=== PATIENT | female | born 1970 | race Caucasian/White ===

== ENCOUNTER 2018-04-28 14:24 | Inpatient (IN) | payer BC ==
[2018-04-28] MEDS ORDERED: SODIUM CHLORIDE 0.9% 1,000 ML IV STA (15:59)
[2018-04-28] MEDS: ONDANSETRON 4 MG/2 ML VIAL IVP STA (16:12)
[2018-04-28 16:15] LABS: Basophils % (A) 0 %; Eosinophils # (A) 0.1 k/uL (0-0.7); Eosinophils % (A) 1 %; HCT 47.9 % (34.0-46.0); HGB 16.2 gm/dL (11.4-16.0); Lymphocytes # (A) 1.2 k/uL (1.0-4.8); Lymphocytes % (A) 12 %; MCH 30.2 pg (25.0-35.0); MCHC 33.8 g/dL (31.0-37.0); MCV 89.3 fL (80.0-100.0); Mean Platelet Volume 6.8; Monocytes # (A) 0.6 k/uL (0-1.0); Monocytes % (A) 6 %; Neutrophils # (A) 7.9 k/uL (1.3-7.7); Neutrophils % (A) 80 %; Platelet Count 285 k/uL (150-450); RBC 5.36 m/uL (3.80-5.40); RDW 12.2 % (11.5-15.5); WBC 9.8 k/uL (3.8-10.6)
[2018-04-28 16:24] LABS: ALT 31 U/L (9-52); AST 25 U/L (14-36); Albumin 4.9 g/dL (3.5-5.0); Alkaline Phosphatase 119 U/L (38-126); Amylase 60 U/L (30-110); Anion Gap 12 mmol/L; Blood Urea Nitrogen 15 mg/dL (7-17); Calcium 10.3 mg/dL (8.4-10.2); Carbon Dioxide 25 mmol/L (22-30); Chloride 101 mmol/L (98-107); Glucose 120 mg/dL (74-99); Lipase 55 U/L (23-300); Sodium 138 mmol/L (137-145); Total Bilirubin 0.9 mg/dL (0.2-1.3); Total Protein 7.8 g/dL (6.3-8.2)
--- NOTE | 2018-04-28 16:26 | ED ---
Abdominal Pain HPI - General Source: patient, RN notes reviewed Mode of arrival: wheelchair Limitations: no limitations <Cooper Otto - Last Filed: 04/28/18 17:55> <Zoë Mccabe - Last Filed: 04/28/18 18:17> - General Chief Complaint: Abdominal Pain Stated Complaint: abdominal pain/vomiting Time Seen by Provider: 04/28/18 15:42 - History of Present Illness Initial Comments: This is a 48-year-old female presents emergency Department with chief complaint of abdominal pain. Patient states that she feels like she's been having gas bubbles intermittent abdominal pain. Patient had some nausea no vomiting no diarrhea. Denies any vaginal bleeding vaginal discharge or dysuria no hematuria. Patient states she does drink wine a regular basis concerned about possible pancreatitis or gastritis enteritis. 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 Patient's had no prior abdominal infections no history of diverticulitis pancreatitis. She's had no prior cholecystectomy or appendectomy. (Cooper Otto) - Related Data Home Medications Medication Instructions Recorded Confirmed No Known Home Medications 04/28/18 04/28/18 Allergies Allergy/AdvReac Type Severity Reaction Status Date / Time No Known Allergies Allergy Verified 04/28/18 15:31 Review of Systems ROS Other: All systems not noted in ROS Statement are negative. <Cooper Otto - Last Filed: 04/28/18 17:55> ROS Other: All systems not noted in ROS Statement are negative. <Zoë Mccabe - Last Filed: 04/28/18 18:17> ROS Statement: Those systems with pertinent positive or pertinent negative responses have been documented in the HPI. Past Medical History Additional Past Medical History / Comment(s): colon polyps History of Any Multi-Drug Resistant Organisms: None Reported Past Surgical History: No Surgical Hx Reported Past Psychological History: No Psychological Hx Reported Smoking Status: Current every day smoker Past Alcohol Use History: Daily Past Drug Use History: None Reported <Cooper Otto - Last Filed: 04/28/18 17:55> General Exam Limitations: no limitations General appearance: alert, in no apparent distress Head exam: Present: atraumatic, normocephalic, normal inspection Eye exam: Present: normal appearance, PERRL, EOMI. Absent: scleral icterus, conjunctival injection, periorbital swelling ENT exam: Present: normal exam, normal oropharynx, mucous membranes moist, TM's normal bilaterally Neck exam: Present: normal inspection, full ROM. Absent: tenderness, meningismus, lymphadenopathy Respiratory exam: Present: normal lung sounds bilaterally. Absent: respiratory distress, wheezes, rales, rhonchi, stridor Cardiovascular Exam: Present: regular rate, normal rhythm, normal heart sounds. Absent: systolic murmur, diastolic murmur, rubs, gallop, clicks GI/Abdominal exam: Present: soft, tenderness (Mild diffuse), normal bowel sounds. Absent: distended, guarding, rebound, rigid Back exam: Absent: CVA tenderness (R), CVA tenderness (L) Skin exam: Present: warm, dry, intact, normal color. Absent: rash <Cooper Otto - Last Filed: 04/28/18 17:55> Vital Signs 04/28/18 04/28/18 15:28 17:58 Temperature 97.5 F L 98.4 F Pulse Rate 75 67 Respiratory 18 19 Rate Blood Pressure 110/74 118/62 O2 Sat by Pulse 99 100 Oximetry Medical Decision Making - Lab Data Result diagrams: 04/28/18 15:53 04/28/18 15:53 <Cooper Otto - Last Filed: 04/28/18 17:55> - Lab Data Result diagrams: 04/28/18 15:53 04/28/18 15:53 <Zoë Mccabe - Last Filed: 04/28/18 18:17> - Medical Decision Making I saw and evaluated the patient after initial workup was performed by PA.. Patient with significant right lower quadrant abdominal pain, CT findings concerning for cecal mass versus appendicitis. Patient declining narcotic pain medication. Patient care was discussed with general surgery Dr. Block who accepts the patient to her service, requests IV antibiotics and nothing by mouth status. Orders were placed. (Zoë Mccabe) - Lab Data Lab Results 04/28/18 04/28/18 Range/Units 15:53 15:53 WBC 9.8 (3.8-10.6) k/uL RBC 5.36 (3.80-5.40) m/uL Hgb 16.2 H (11.4-16.0) gm/dL Hct 47.9 H (34.0-46.0) % MCV 89.3 (80.0-100.0) fL MCH 30.2 (25.0-35.0) pg MCHC 33.8 (31.0-37.0) g/dL RDW 12.2 (11.5-15.5) % Plt Count 285 (150-450) k/uL Neutrophils % 80 % Lymphocytes % 12 % Monocytes % 6 % Eosinophils % 1 % Basophils % 0 % Neutrophils # 7.9 H (1.3-7.7) k/uL Lymphocytes # 1.2 (1.0-4.8) k/uL Monocytes # 0.6 (0-1.0) k/uL Eosinophils # 0.1 (0-0.7) k/uL Basophils # 0.0 (0-0.2) k/uL Sodium 138 (137-145) mmol/L Potassium 4.0 (3.5-5.1) mmol/L Chloride 101 (98-107) mmol/L Carbon Dioxide 25 (22-30) mmol/L Anion Gap 12 mmol/L BUN 15 (7-17) mg/dL Creatinine 0.60 (0.52-1.04) mg/dL Est GFR (CKD-EPI)AfAm >90 (>60 ml/min/1.73 sqM) Est GFR (CKD-EPI)NonAf >90 (>60 ml/min/1.73 sqM) Glucose 120 H (74-99) mg/dL Calcium 10.3 H (8.4-10.2) mg/dL Total Bilirubin 0.9 (0.2-1.3) mg/dL AST 25 (14-36) U/L ALT 31 (9-52) U/L Alkaline Phosphatase 119 (38-126) U/L Total Protein 7.8 (6.3-8.2) g/dL Albumin 4.9 (3.5-5.0) g/dL Amylase 60 (30-110) U/L Lipase 55 (23-300) U/L Disposition <Cooper Otto M - Last Filed: 04/28/18 17:55> <Zoë Mccabe P - Last Filed: 04/28/18 18:17> Clinical Impression: Acute appendicitis Disposition: ADMITTED IP TO THIS [facility] Condition: Stable Referrals: None,Stated [Primary Care Provider] - 1-2 days
--- NOTE | 2018-04-28 17:05 | CT ---
EXAMINATION TYPE: CT abdomen pelvis w con DATE OF EXAM: 04/28/2018 COMPARISON: HISTORY: Abdominal pain with vomiting x1 week CT DLP: 420.8 mGycm Automated exposure control for dose reduction was used. TECHNIQUE: Helical acquisition of images from the lung bases through the pelvis have been completed. CONTRAST: Performed without Oral Contrast and with IV Contrast, patient injected with 100 mL of Isovue 300. FINDINGS: LUNG BASES: Calcified granuloma present in the right lower lobe.. AORTA: No significant abnormality is appreciated. LIVER/GB: Low dense focus measuring 12 mm is thought to enhance on delayed images within the left lob e and may represent hemangioma, axial image 10. PANCREAS: No significant abnormality is seen. SPLEEN: No significant abnormality is seen. ADRENALS: No significant abnormality is seen. KIDNEYS: No significant abnormality is seen. REPRODUCTIVE ORGANS: No significant abnormality is seen BOWEL: Within the right lower quadrant there is abnormal soft tissue present with some local inflamm atory change dependence is at the upper limit of normal for size on axial images but may be dilated c oronal image 34. There are some fluid-filled loops of small bowel. Some minimal diverticular change noted in the sigmoid colon FREE AIR: No Free Air visible. ASCITES: Small amount of free fluid in the pelvis. PELVIC ADENOPATHY: None visualized. RETROPERITONEAL ADENOPATHY: No Retroperitoneal Adenopathy visible. URINARY BLADDER: No significant abnormality is seen. OSSEOUS STRUCTURES: No significant abnormality is seen. IMPRESSION: FINDINGS COULD POSSIBLY REPRESENT APPENDICITIS, CORRELATE, FOLLOW-UP IS RECOMMENDED. Inflammatory tim nges are suspected within the cecum, difficult to exclude underlying soft tissue mass. Ileus suspecte d.
[2018-04-28] MEDS ORDERED: ACETAMINOPHEN IV (For NPO) 1,000 MG in EMPTY BAG 1 BAG IVPB ONE (17:25)
[2018-04-28] MEDS ORDERED: PIPERACILLIN-TAZOBACTAM 3.375 GM in DEXTROSE/WATER 1 50ML.BAG IVPB STA (17:34)
[2018-04-28] MEDS ORDERED: ONDANSETRON 4 MG/2 ML VIAL IVP PRN (17:55)
[2018-04-28] MEDS ORDERED: cefTRIAXone IN SWFI 1,000 MG/10 ML SYRINGE IVP STA (18:02)
[2018-04-28 18:28] LABS: Appearance,Urine Clear (Clear); Bilirubin,Urine Negative (Negative); Blood,Urine Negative (Negative); Color,Urine Yellow; Glucose,Urine (UA) Negative (Negative); Ketones,Urine 3+ (Negative); Leukocyte Esterase,Urine Negative (Negative); Nitrite,Urine Negative (Negative); Protein,Urine Trace (Negative); Urobilinogen,Urine <2.0 mg/dL (<2.0)
[2018-04-28] MEDS ORDERED: MORPHINE SULFATE 2 MG/ML SYRINGE IVP ONE (18:35)
[2018-04-28 18:37] LABS: Specific Gravity,Urine >1.050 (1.001-1.035)
[2018-04-28] MEDS: SODIUM CHLORIDE 0.9% 1,000 ML IV SCH (18:44)
--- NOTE | 2018-04-28 20:07 | P.GSHP ---
History of Present Illness H&P Date: 04/28/18 Chief Complaint: Abdominal pain The patient's a 48-year-old female who presented to the emergency room with abdominal pain. This is been going on as "gas bubbles "for the last 2 weeks. Got worse chest today. She's had some nausea and vomiting so came into the emergency department today. Denies fevers or chills. The pain will come and go like a wave. She's never had anything like this in the past. No one else at home is been ill. She's had normal bowel movements. 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 She gets colonoscopies regularly and typically has polyps. Her last colonoscopy was 3 years ago. She denies any blood in the stools or dark tarry stools. Her father's had colon cancer. - Review of Systems All systems: negative - Constitutional Constitutional: Denies weight loss - Gastrointestinal Gastrointestinal: Denies bloating, Denies change in bowel habits, Denies diarrhea, Denies melena Past Medical History Additional Past Medical History / Comment(s): colon polyps History of Any Multi-Drug Resistant Organisms: None Reported Past Surgical History: No Surgical Hx Reported Past Psychological History: No Psychological Hx Reported Smoking Status: Current every day smoker Past Alcohol Use History: Daily Past Drug Use History: None Reported Medications and Allergies Home Medications Medication Instructions Recorded Confirmed Type No Known Home Medications 04/28/18 04/28/18 History Allergies Allergy/AdvReac Type Severity Reaction Status Date / Time No Known Allergies Allergy Verified 04/28/18 15:31 Surgical - Exam Osteopathic Statement: *. No significant issues noted on an osteopathic structural exam other than those noted in the History and Physical/Consult. Vital Signs Temp Pulse Resp BP Pulse Ox 97.5 F L 75 18 110/74 99 04/28/18 15:28 04/28/18 15:28 04/28/18 15:28 04/28/18 15:28 04/28/18 15:28 - General well developed, well nourished, no distress - Eyes normal ocular movement - ENT normal mucosa - Neck trachea midline, no lymphadectomy - Respiratory normal expansion, normal respiratory effort, clear to auscultation - Cardiovascular Rhythm: regular Abnormal Heart Sounds: no systolic murmur - Abdomen Abdomen: soft, tender (Very minimal right lower quadrant), bowel sounds, masses (Fullness in the right lower quadrant), no guarding, no rigid, no rebound, no distended - Integumentary no rash, no abnormal pigmentation - Psychiatric oriented to time, oriented to person, oriented to place, speech is normal, memory intact Results - Labs 04/28/18 15:53 04/28/18 15:53 Abnormal Lab Results - Last 24 Hours (Table) 04/28/18 04/28/18 04/28/18 Range/Units 15:53 15:53 18:00 Hgb 16.2 H (11.4-16.0) gm/dL Hct 47.9 H (34.0-46.0) % Neutrophils # 7.9 H (1.3-7.7) k/uL Glucose 120 H (74-99) mg/dL Calcium 10.3 H (8.4-10.2) mg/dL Ur Specific [place] >1.050 H (1.001-1.035) Urine Protein Trace H (Negative) Urine Ketones 3+ H (Negative) Diabetes panel 04/28/18 Range/Units 15:53 Sodium 138 (137-145) mmol/L Potassium 4.0 (3.5-5.1) mmol/L Chloride 101 (98-107) mmol/L Carbon Dioxide 25 (22-30) mmol/L BUN 15 (7-17) mg/dL Creatinine 0.60 (0.52-1.04) mg/dL Glucose 120 H (74-99) mg/dL Calcium 10.3 H (8.4-10.2) mg/dL AST 25 (14-36) U/L ALT 31 (9-52) U/L Alkaline Phosphatase 119 (38-126) U/L Total Protein 7.8 (6.3-8.2) g/dL Albumin 4.9 (3.5-5.0) g/dL Calcium panel 04/28/18 Range/Units 15:53 Calcium 10.3 H (8.4-10.2) mg/dL Albumin 4.9 (3.5-5.0) g/dL Pituitary panel 04/28/18 Range/Units 15:53 Sodium 138 (137-145) mmol/L Potassium 4.0 (3.5-5.1) mmol/L Chloride 101 (98-107) mmol/L Carbon Dioxide 25 (22-30) mmol/L BUN 15 (7-17) mg/dL Creatinine 0.60 (0.52-1.04) mg/dL Glucose 120 H (74-99) mg/dL Calcium 10.3 H (8.4-10.2) mg/dL Adrenal panel 04/28/18 Range/Units 15:53 Sodium 138 (137-145) mmol/L Potassium 4.0 (3.5-5.1) mmol/L Chloride 101 (98-107) mmol/L Carbon Dioxide 25 (22-30) mmol/L BUN 15 (7-17) mg/dL Creatinine 0.60 (0.52-1.04) mg/dL Glucose 120 H (74-99) mg/dL Calcium 10.3 H (8.4-10.2) mg/dL Total Bilirubin 0.9 (0.2-1.3) mg/dL AST 25 (14-36) U/L ALT 31 (9-52) U/L Alkaline Phosphatase 119 (38-126) U/L Total Protein 7.8 (6.3-8.2) g/dL Albumin 4.9 (3.5-5.0) g/dL - Imaging CT scan - abdomen: report reviewed, image reviewed Assessment and Plan (1) Abdominal pain Current Visit: Yes Status: Acute Code(s): R10.9 - UNSPECIFIED ABDOMINAL PAIN SNOMED Code(s): 93207824 (2) Abnormal computed tomography of abdomen and pelvis Current Visit: Yes Status: Acute Code(s): R93.5 - ABN FINDINGS ON DX IMAGING OF ABD REGIONS, INC RETROPERITON SNOMED Code(s): 616380498 (3) Family history of colon cancer in father Current Visit: Yes Status: Acute Code(s): Z80.0 - FAMILY HISTORY OF MALIGNANT NEOPLASM OF DIGESTIVE ORGANS SNOMED Code(s): 399308976 (4) Personal history of colonic polyps Current Visit: Yes Status: Acute Code(s): Z86.010 - PERSONAL HISTORY OF COLONIC POLYPS SNOMED Code(s): 924121150 Plan: Her symptoms are not typical of acute appendicitis. We'll recheck lab in the morning. We'll monitor her for fever. If she has a stool we'll do Hemoccult. Also obtain a CEA. I would be concerned she could have some sort of tumor at the ileocecal valve is starting to cause partial obstruction. This was discussed with her. We'll do DVT and ulcer prophylaxis. Further recommendations to follow.
[2018-04-28] MEDS ORDERED: MORPHINE SULFATE 4 MG/ML SYRINGE IVP PRN (20:51)
[2018-04-28] MEDS ORDERED: KETOROLAC 30 MG/ML 1 ML VIAL IVP PRN (20:53)
[2018-04-28] MEDS ORDERED: METOCLOPRAMIDE 5 MG/ML 2 ML VIAL IVP PRN (20:53)
[2018-04-28] MEDS: MORPHINE SULFATE 2 MG/ML SYRINGE IVP PRN (22:53)
[2018-04-29] MEDS: MORPHINE SULFATE 2 MG/ML SYRINGE IVP PRN ×2 (02:40→06:39)
[2018-04-29] MEDS: SODIUM CHLORIDE 0.9% 1,000 ML IV SCH ×3 (09:35→23:46)
--- NOTE | 2018-04-29 11:27 | P.PN ---
Subjective Progress Note Date: 04/29/18 Principal diagnosis: Abdominal pain The patient was monitored overnight. She has not had any fevers or chills. She has some intermittent crampy abdominal pain. White count is normal. Computed tomography scan was reviewed with her and her . Concern is this is an obstructing colon tumor and not appendicitis. Her symptoms do not fit an appendicitis pattern. Objective - Vital Signs Vital signs: Vital Signs Temp 98.0 F 04/29/18 09:33 Pulse 66 04/29/18 09:33 Resp 16 04/29/18 09:33 BP 99/59 04/29/18 09:33 Pulse Ox 98 04/29/18 09:33 Intake & Output 04/28/18 04/29/18 04/29/18 18:59 06:59 18:59 Intake Total 240 Balance 240 Weight 63.503 kg 62.2 kg Intake: Oral 240 - Constitutional General appearance: Present: average body habitus, cooperative, no acute distress - Respiratory Respiratory: bilateral: CTA - Cardiovascular Rhythm: regular - Gastrointestinal Gastrointestinal Comment(s): Right lower quadrant fullness General gastrointestinal: Present: normal bowel sounds, soft, tenderness (No significant tenderness) - Labs CBC & Chem 7: 04/28/18 15:53 04/28/18 15:53 Labs: Abnormal Lab Results - Last 24 Hours (Table) 04/28/18 04/28/18 04/28/18 Range/Units 15:53 15:53 18:00 Hgb 16.2 H (11.4-16.0) gm/dL Hct 47.9 H (34.0-46.0) % Neutrophils # 7.9 H (1.3-7.7) k/uL Glucose 120 H (74-99) mg/dL Calcium 10.3 H (8.4-10.2) mg/dL Ur Specific [place] >1.050 H (1.001-1.035) Urine Protein Trace H (Negative) Urine Ketones 3+ H (Negative) Assessment and Plan (1) Abdominal pain Current Visit: Yes Status: Acute Code(s): R10.9 - UNSPECIFIED ABDOMINAL PAIN SNOMED Code(s): 79676736 (2) Abnormal computed tomography of abdomen and pelvis Current Visit: Yes Status: Acute Code(s): R93.5 - ABN FINDINGS ON DX IMAGING OF ABD REGIONS, INC RETROPERITON SNOMED Code(s): 241695038 (3) Family history of colon cancer in father Current Visit: Yes Status: Acute Code(s): Z80.0 - FAMILY HISTORY OF MALIGNANT NEOPLASM OF DIGESTIVE ORGANS SNOMED Code(s): 589687214 (4) Personal history of colonic polyps Current Visit: Yes Status: Acute Code(s): Z86.010 - PERSONAL HISTORY OF COLONIC POLYPS SNOMED Code(s): 157730945 Plan: Her picture is most consistent with a slowly obstructing colon tumor. Her pain is likely due to an obstruction at the ileocecal valve. We discussed the computed tomography scan findings. There is no evidence of any metastatic disease in the liver. No significant lymphadenopathy. At this point she would not tolerate a colonoscopy prep due to the obstructive symptoms. Recommended a laparoscopic right hemicolectomy possible open. The procedure risks and complications were discussed. We can likely do a primary anastomosis with a fairly low risk. Questions were encouraged and answered. She will need a postoperative colonoscopy. Optimally this would be done preoperative but she would not tolerate a prep.
[2018-04-29] MEDS ORDERED: MIDAZOLAM 2 MG/2 ML VIAL IV PRN (15:42)
[2018-04-29] MEDS ORDERED: ONDANSETRON 4 MG/2 ML VIAL IVP ONE (15:42)
[2018-04-29] MEDS ORDERED: DEXAMETHASONE SOD PHOSPHATE 10 MG/ML 1 ML VIAL IV ONE (15:42)
[2018-04-29] MEDS ORDERED: IV FLUID CONTINUATION 100 ML IV ONE (15:49)
[2018-04-29] MEDS: ONDANSETRON 4 MG/2 ML VIAL IVP STA (16:12)
[2018-04-29] MEDS: LACTATED RINGERS 1,000 ML IV SCH ×2 (16:12→17:02)
[2018-04-29] MEDS ORDERED: LIDOCAINE 1% 20 ML VIAL (10MG/ML) FOR IV START INTRADERMA ONE (16:13)
[2018-04-29] MEDS ORDERED: SUCCINYLCHOLINE CHLORIDE 100 MG/5 ML SYR IV ONE (17:03)
[2018-04-29] MEDS ORDERED: NEOSTIGMINE 1 MG/ML 10 ML VIAL ONE (17:03)
[2018-04-29] MEDS ORDERED: KETAMINE 10 MG/ML 20 ML VIAL ONE (17:03)
[2018-04-29] MEDS ORDERED: ROCURONIUM BROMIDE 10 MG/ML 10 ML VIAL IV ONE (17:03)
[2018-04-29] MEDS ORDERED: MIDAZOLAM 2 MG/2 ML VIAL ONE (17:03)
[2018-04-29] MEDS ORDERED: KETOROLAC 30 MG/ML 1 ML VIAL ONE (17:03)
[2018-04-29] MEDS ORDERED: LIDOCAINE 1% INJ 10MG/ML (20 ML MDV) ONE (17:03)
[2018-04-29] MEDS ORDERED: fentaNYL (PF) 50 MCG/ML 2 ML AMP ONE (17:03)
[2018-04-29] MEDS ORDERED: PROPOFOL 10 MG/ML 20 ML VIAL IV ONE (17:03)
[2018-04-29] MEDS ORDERED: HYDROmorphone (PF) 1 MG/ML ONE (17:03)
[2018-04-29] MEDS ORDERED: GLYCOPYRROLATE 0.2 MG/ML 2 ML VIAL ONE (17:03)
[2018-04-29] MEDS ORDERED: metroNIDAZOLE-NS PMX 500 MG in SALINE 1 100ML.BAG IVPB STA (17:11)
[2018-04-29] MEDS ORDERED: SODIUM CHLORIDE 0.9% 100 ML with ceFAZolin 2,000 MG IV ONE ×2 (17:15)
[2018-04-29] MEDS ORDERED: LIDOCAINE 1%-EPI 1:100,000 30 ML VIAL SQ ONE (17:25)
[2018-04-29] MEDS ORDERED: BUPIVACAINE (PF) 0.5% 30 ML VIAL SQ ONE (17:25)
[2018-04-29] MEDS: HYDROmorphone 1 MG/ML 1 ML SYRINGE IVP ONE ×4 (19:06→19:35)
[2018-04-29] MEDS ORDERED: NALOXONE 0.4 MG/ML 1 ML VIAL IV PRN (19:17)
--- NOTE | 2018-04-29 19:17 | P.OP ---
Date of Procedure: 04/29/18 Preoperative Diagnosis: Colon obstruction, cecal mass Postoperative Diagnosis: Colon obstruction, cecal mass Procedure(s) Performed: Laparoscopic-assisted right hemicolectomy Anesthesia: JAIRO Surgeon: Lara Block Estimated Blood Loss (ml): 75 Pathology: other (Right colon, peritoneal fluid) Condition: stable Disposition: PACU Indications for Procedure: Patient presented with abdominal pain and a CT showing abnormality in the cecum. There is a strong family history of colon cancer and the patient has had multiple colon polyps. Concern was for a cecal tumor with obstruction. 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 The tumor had several gelatinous appearing cystic lesions on the surface. Several 100 mL's of clear yellow fluid in the pelvis and right colic gutter. This was aspirated and sent for cytology. The liver, diaphragm, remainder of the large and small bowel was grossly normal where it was seen. She did have a incidental finding of a left inguinal hernia. Description of Procedure: The patient's taken the operative suite where she is prepped and draped in the usual sterile manner under general endotracheal anesthetic. An infraumbilical incision was made and a varies needle was placed into the abdominal cavity. Pneumoperitoneum was established with CO2 gas. Sites are chosen for accessory trochars needs are placed through small skin incisions. The patient is rotated towards the left. The terminal ileum is identified. The appendix and cecum are identified. The course of the ureter was seen and it was identified. The peritoneum was then incised along the terminal ileum and towards the peritoneal surface of the sidewall. There was a hard woody portion that appeared to be rectal extension. This was removed with harmonic scissors en-block with the cecum and right colon. The right paracolic gutter was then incised with harmonic scissors. The hepatic flexure and proximal transverse colon were freed up with harmonic scissors. The hepatic flexure and ascending colon were then rotated medially. Some additional filmy attachments posteriorly to the cecum were freed up with harmonic scissors. Once the colon was adequately mobilized, site was chosen on the anterior abdominal wall for removal of the tumor. A small incision was made. A splitting-type McBurney's incision was made. A small wound protector was placed. Terminal ileum was then brought up through the incision. Opening was made in the mesentery. A NORA stapler was placed and fired. The proximal small bowel was then tagged with 0 Vicryl dropped back into the abdominal cavity. The mesentery was then taken down with harmonic scissors. The ileocolic and middle colic vessels were clamped, cut, tied with 0 Vicryl sutures. Site was then chosen on the transverse colon for resection. A NORA stapler was placed and fired. A [id number] anastomosis was then carried out. The antimesenteric border of the small bowel was tacked to the transverse colon using 3-0 Vicryl. A small opening was made in each limb of the bowel and a NORA stapler was placed and fired. The enteric defect was closed in a 2 layered manner using 3-0 Vicryl. The anastomosis was reinforced with 3-0 Vicryl Lembert sutures. There was good anastomosis to finger palpation. Gloves were changed. The bowel was dropped back into the abdominal cavity. The posterior fascia and peritoneum were closed with 0 Vicryl. The muscle layers were allowed to fall back together. The anterior fascia was closed with 0 Vicryl. The pneumoperitoneum was reestablished in the abdominal and pelvic contents were examined. The bowel seemed to lay without any undue tension. The paracolic gutter was irrigated and aspirated. Everything appeared hemostatic. Ligaclips were used to gregoria the peritoneal edges were there was concern for direct tumor extension. The pneumoperitoneum was then released. The trochars were removed. The fascia at the umbilicus was closed with 0 Vicryl. The skin incisions were closed with nettie. She tolerated the procedure without difficulty and was taken recovery room in satisfactory condition. According to or personnel, ARE correct.
[2018-04-29] MEDS ORDERED: MIDAZOLAM 2 MG/2 ML VIAL IVP ONE (19:19)
[2018-04-29] MEDS ORDERED: SODIUM CHLORIDE 0.9% 1,000 ML IV ONE (19:38)
[2018-04-29] MEDS: fentaNYL (PF) 50 MCG/ML 2 ML AMP IV PRN ×2 (19:40→19:51)
[2018-04-29] MEDS: ENOXAPARIN 40 MG/0.4 ML SYRINGE SQ SCH (21:20)
[2018-04-29] MEDS: METOCLOPRAMIDE 5 MG/ML 2 ML VIAL IVP SCH (23:32)
[2018-04-29] MEDS: HYDROcodone/APAP 5-325MG 1 EACH TAB PO PRN (23:32)
[2018-04-29] MEDS: KETOROLAC 30 MG/ML 1 ML VIAL IVP SCH (23:33)
[2018-04-29] MEDS: D5-0.45% NACL WITH KCL 20MEQ/L 1,000 ML IV SCH (23:37)
[2018-04-30] MEDS: HYDROcodone/APAP 5-325MG 1 EACH TAB PO PRN ×4 (02:32→16:24)
[2018-04-30] MEDS: METOCLOPRAMIDE 5 MG/ML 2 ML VIAL IVP SCH ×3 (05:42→18:01)
[2018-04-30] MEDS: KETOROLAC 30 MG/ML 1 ML VIAL IVP SCH ×3 (05:43→18:00)
[2018-04-30] MEDS: D5-0.45% NACL WITH KCL 20MEQ/L 1,000 ML IV SCH ×2 (05:57→16:25)
[2018-04-30 08:16] LABS: Anion Gap 6 mmol/L; Blood Urea Nitrogen 8 mg/dL (7-17); Calcium 8.4 mg/dL (8.4-10.2); Carbon Dioxide 23 mmol/L (22-30); Chloride 105 mmol/L (98-107); Glucose 105 mg/dL (74-99); Sodium 134 mmol/L (137-145)
[2018-04-30] MEDS ORDERED: ceFAZolin 2,000 MG in DEXTROSE/WATER 1 50ML.BAG IVPB SCH (09:15)
[2018-04-30] MEDS: PANTOPRAZOLE 40 MG/10 ML VIAL IV SCH (09:15)
[2018-04-30] MEDS: ceFAZolin IN SWFI 2 GM/20 ML SYRINGE IVP SCH ×2 (09:23→17:05)
[2018-04-30] MEDS: metroNIDAZOLE-NS PMX 500 MG in SALINE 1 100ML.BAG IVPB SCH ×2 (09:30→17:04)
[2018-04-30] MEDS: SODIUM CHLORIDE 0.9% 1,000 ML IV SCH (09:59)
[2018-04-30 10:34] LABS: Basophils % (A) 0 %; Eosinophils % (A) 0 %; HCT 33.4 % (34.0-46.0); Lymphocytes # (A) 1.4 k/uL (1.0-4.8); Lymphocytes % (A) 16 %; MCH 30.5 pg (25.0-35.0); MCHC 33.4 g/dL (31.0-37.0); MCV 91.2 fL (80.0-100.0); Mean Platelet Volume 6.9; Monocytes # (A) 0.9 k/uL (0-1.0); Monocytes % (A) 10 %; Neutrophils # (A) 6.2 k/uL (1.3-7.7); Neutrophils % (A) 71 %; Platelet Count 184 k/uL (150-450); RBC 3.66 m/uL (3.80-5.40); RDW 12.3 % (11.5-15.5); WBC 8.7 k/uL (3.8-10.6)
[2018-04-30 10:40] LABS: HGB 11.1 gm/dL (11.4-16.0)
[2018-04-30] MEDS: LACTATED RINGERS 1,000 ML IV SCH (15:57)
[2018-04-30] MEDS: ENOXAPARIN 40 MG/0.4 ML SYRINGE SQ SCH (21:24)
[2018-05-01] MEDS ORDERED: KETOROLAC 30 MG/ML 1 ML VIAL ONE (00:20)
[2018-05-01] MEDS ORDERED: METOCLOPRAMIDE 5 MG/ML 2 ML VIAL ONE (00:20)
[2018-05-01] MEDS ORDERED: D5-0.45% NACL WITH KCL 20MEQ/L 1,000 ML BAG IV ONE (00:20)
[2018-05-01] MEDS ORDERED: HYDROcodone/APAP 5-325MG 1 EACH TAB ONE (00:20)
[2018-05-01] MEDS: KETOROLAC 30 MG/ML 1 ML VIAL IVP SCH ×4 (04:31→18:15)
[2018-05-01] MEDS: D5-0.45% NACL WITH KCL 20MEQ/L 1,000 ML IV SCH ×2 (04:31→12:32)
[2018-05-01] MEDS: SODIUM CHLORIDE 0.9% 1,000 ML IV SCH ×3 (04:31→18:34)
[2018-05-01] MEDS: METOCLOPRAMIDE 5 MG/ML 2 ML VIAL IVP SCH ×4 (04:31→18:39)
[2018-05-01] MEDS: PANTOPRAZOLE 40 MG/10 ML VIAL IV SCH (09:06)
[2018-05-01 15:32] VITALS: BP 115/65; PULSE 77; RESP 16; TEMP 98.1
[2018-05-01] MEDS: LACTATED RINGERS 1,000 ML IV SCH (18:38)
--- NOTE | 2018-05-01 19:09 | P.PN ---
Subjective Progress Note Date: 04/30/18 Principal diagnosis: Obstructing colon tumor Patient is postop day 1 from a laparoscopic assisted right hemicolectomy. She' s having incisional pain and pain in the right flank. No nausea or vomiting. She's been reluctant to take pain medications and that was encouraged. Objective - Vital Signs Vital signs: Vital Signs Temp 98.1 F 05/01/18 15:00 Pulse 77 05/01/18 15:00 Resp 16 05/01/18 15:00 BP 115/65 05/01/18 15:00 Pulse Ox 98 05/01/18 15:00 Intake & Output 04/30/18 05/01/18 05/01/18 18:59 06:59 18:59 Intake Total 700 1600 Output Total 2550 0 Balance -1850 1600 Weight 62.2 kg 62.2 kg Intake: Intake, IV Titration 700 1600 Amount D5-0.45% NaCl with KCl 700 1600 20Meq/l 1,000 ml @ 100 mls/hr IV .Q10H BRYN Rx#: [id number] Output: Urine 2550 Uretheral (Mg) 350 Stool 0 Other: Voiding Method Toilet Toilet # Voids 1 3 # Bowel Movements 1 - Constitutional General appearance: Present: cooperative, no acute distress - Respiratory Respiratory: bilateral: CTA - Cardiovascular Rhythm: regular - Gastrointestinal General gastrointestinal: Present: normal bowel sounds, soft Localized gastrointestinal: surgical scar: diffuse (Dressings are intact clean and dry ) - Labs CBC & Chem 7: 04/30/18 09:53 04/30/18 07:19 Assessment and Plan (1) Colon cancer Current Visit: Yes Status: Acute Code(s): C18.9 - MALIGNANT NEOPLASM OF COLON, UNSPECIFIED SNOMED Code(s): 815013010 Plan: The patient is doing fairly well. A encouraged her to take some pain medication for the first couple of days is that we'll help her with her pulmonary toilet and overall activity levels. She is agreeable. We'll monitor her oral intake and for resumption of bowel function. Progressing slowly
--- NOTE | 2018-05-01 19:10 | P.PN ---
Subjective Progress Note Date: 05/01/18 Principal diagnosis: Obstructing colon tumor The patient is feeling much better today. She is anxious to go home. She denies any pain. No nausea or vomiting. She's been stooling several times through the day. Feels better than preoperatively. Objective - Vital Signs Vital signs: Vital Signs Temp 98.1 F 05/01/18 15:00 Pulse 77 05/01/18 15:00 Resp 16 05/01/18 15:00 BP 115/65 05/01/18 15:00 Pulse Ox 98 05/01/18 15:00 Intake & Output 05/01/18 05/01/18 05/02/18 06:59 18:59 06:59 Intake Total 1600 Output Total 0 Balance 1600 Weight 62.2 kg Intake: Intake, IV Titration 1600 Amount D5-0.45% NaCl with KCl 1600 20Meq/l 1,000 ml @ 100 mls/hr IV .Q10H BRYN Rx#: [id number] Output: Stool 0 Other: Voiding Method Toilet # Voids 1 3 # Bowel Movements 1 - Constitutional General appearance: Present: cooperative, no acute distress - Respiratory Respiratory: bilateral: CTA - Gastrointestinal General gastrointestinal: Present: normal bowel sounds, soft Localized gastrointestinal: surgical scar: diffuse (Incisions are intact clean and dry ) - Labs CBC & Chem 7: 04/30/18 09:53 04/30/18 07:19 Assessment and Plan (1) Colon cancer Current Visit: Yes Status: Acute Code(s): C18.9 - MALIGNANT NEOPLASM OF COLON, UNSPECIFIED SNOMED Code(s): 204094392 Plan: Patient surgically stable for discharge. We'll and over postoperative restrictions. I'll see her in the office next week. She is to call if she has any questions or concerns.
--- NOTE | 2018-05-01 19:12 | P.DS ---
Providers Date of admission: 04/28/18 18:15 Expected date of discharge: 05/01/18 Attending physician: Lara Block Primary care physician: Stated None - Discharge Diagnosis(es) (1) Colon cancer Current Visit: Yes Status: Acute Hospital Course: The patient presented to the emergency room with a two-week history of abdominal pain along with some nausea and vomiting. She is worked up and had a CT done showing an inflammatory change in the right lower quadrant. She was admitted for appendicitis. She was monitored overnight and showed no sign of fever. No evidence of leukocytosis. In questioning her there was a very strong family history of colon cancer and the patient was supposed to have colonoscopies performed very regularly. Her last would've been 3 years previously. Reviewing her computed tomography scan this appeared to be more like a colon tumor causing obstruction at the ileocecal valve. She was subsequently taken to the OR where she underwent a laparoscopic-assisted right hemicolectomy. There appeared to be a large tumor with invasion through the wall of the cecum and onto the right pelvic sidewall. She was given prophylactic antibiotics, DVT and ulcer prophylaxis. She quickly progressed. By postoperative day 2 she was tolerating a diet and having good bowel movements minimal pain and was felt to be stable for discharge Pertinent Studies: Computed tomography scan, lab Procedures: Laparoscopic-assisted right hemicolectomy Patient Condition at Discharge: Good Plan - Discharge Summary Discharge Rx Participant: No New Discharge Prescriptions: New HYDROcodone/APAP 5-325MG [[facility] 5-325] 1 - 2 tab PO Q4H PRN #15 tab PRN Reason: Pain No Action Biotin 5 mg PO DAILY Allergy Med (Unknown Otc) 1 tab PO DAILY PRN PRN Reason: Allergy Symptoms Discharge Medication List Allergy Med (Unknown Otc) 1 tab PO DAILY PRN 04/29/18 [History] Biotin 5 mg PO DAILY 04/29/18 [History] HYDROcodone/APAP 5-325MG [[facility] 5-325] 1 - 2 tab PO Q4H PRN #15 tab 05/01/18 [Rx ] Follow up Appointment(s)/Referral(s): Lara Block DO [Doctor of Osteopathic Medicine] - 05/09/18 (office closed, please call and make appointment) Patient Instructions/Handouts: Low Fiber Diet (DC), Colectomy (DC) Activity/Diet/Wound Care/Special Instructions: May remove the dressing and shower tomorrow. No tub bath or swimming for 1 week. No lifting > 10 pounds. Horace diet for 2 weeks. No driving for 1 week. Call if fever, chills, nausea or vomiting, abdominal pain, rectal bleeding Discharge Disposition: HOME SELF-CARE
== END 2018-05-01 19:19 | disposition home or self-care (01) | DRG 331 ==
LOC: EC 14:24 → 6PED 18:15 → 3SUR 04-29 18:03
PROVIDERS: ADMIT Surgery; ATTEND Surgery
PROC: 0DTF0ZZ Resection of Right Large Intestine, Open Approach (ICD-10-PCS; principal; 2018-04-29 09:35)
DX: C18.0 Malignant neoplasm of cecum (principal); F17.200 Nicotine dependence, unspecified, uncomplicated; Z80.0 Family history of malignant neoplasm of digestive organs; K40.90 Unilateral inguinal hernia, without obstruction or gangrene, not specified as recurrent
CPT/HCPCS: 36415; 74177; 80048; 80053; 81003; 81025; 82150; 82378; 83690; 85025; 86850; 86900; 86901; 88108; 88305; 88309; 88341; 88342; 94760; 96365; 96366; 96375; 99285

== ENCOUNTER → 2018-05-18 | Outpatient (CLI) | payer BC ==
--- NOTE | 2018-05-19 11:26 | PE ---
EXAMINATION TYPE: PET CT fusion skull to thigh DATE OF EXAM: 05/18/2018 COMPARISON: CT abdomen pelvis 04/28/2018 Prior PET/CT: None HISTORY: Colon cancer TECHNIQUE: Following the intravenous administration of 11.008 mCi of F-18 FDG, whole body images are performed from the skull base to the midthigh. Images are reviewed on the computer in the coronal, axial, and sagittal planes. Reconstructed rotating images are created on independent workstation and reviewed on the computer. A localization and attenuation correction CT is performed in conjunction with the PET scan. DLP: 263.03 mGycm SCAN: Initial Scan Blood glucose: 91 mg/dL Average Mediastinum SUV: 1.74 Average Liver SUV: 2.68 FINDINGS: NECK: No abnormal uptake THORAX: No abnormal uptake ABDOMEN: There is some focal radiotracer accumulation in the region of the proximal ascending colon. This appears to be at the level of the anastomosis and within fecal debris. This could be postsurgica l change. The patient's cancer could be at this location as well could correlate with the recent hist ory. PELVIS: No abnormal uptake OSSEOUS STRUCTURES: No suspicious uptake LOCALIZATION CT: The ascending thoracic aorta at the level of main pulmonary artery is 2.9 cm patent main pulmonary artery the bifurcation is 2.6 cm. Is likely a small splenule posterior to the right ki dney. No suspicious uptake on PET scan is evident within this region postsurgical changes are in the right lower quadrant. COMPARISON: Postsurgical changes appear to have occurred over the interval the right lower quadrant a nd cecum. IMPRESSION: 1. Uptake in the right lower quadrant on PET scan likely related to recent surgery. 2. No suspicious changes for metastatic disease on PET scan.
== END ==
LOC: RADPETMAIN 11:56
PROVIDERS: ATTEND Internal Medicine Hematology & Oncology
DX: C18.9 Malignant neoplasm of colon, unspecified (principal)
CPT/HCPCS: 78815; A9552

== ENCOUNTER → 2018-05-24 | Outpatient (CLI) | payer BC ==
--- NOTE | 2018-05-24 11:46 | US ---
EXAMINATION TYPE: US venous doppler duplex LE DATE OF EXAM: 05/24/2018 11:29 AM COMPARISON: NONE CLINICAL HISTORY: R22.42,R22.41 SWELLING LT AND RT LOWER LIMB. SIDE PERFORMED: Bilateral TECHNIQUE: The lower extremity deep venous system is examined utilizing real time linear array sonog owen with graded compression, doppler sonography and color-flow sonography. VESSELS IMAGED: External Iliac Vein (EIV) Common Femoral Vein Deep Femoral Vein Greater Saphenous Vein * Femoral Vein Popliteal Vein Small Saphenous Vein * Proximal Calf Veins (* superficial vessels) Grayscale, color doppler, spectral doppler imaging performed of the deep veins of the lower extremiti es. There is normal flow, compressibility, vascular waveforms. Right Leg: Negative for DVT Left Leg: Negative for DVT IMPRESSION: No sonographic evidence of deep venous thrombosis within either lower extremity.
== END | disposition home or self-care (01) ==
LOC: RADUSWWP 10:54
PROVIDERS: ATTEND Internal Medicine Hematology & Oncology
DX: R22.41 Localized swelling, mass and lump, right lower limb (principal); R22.42 Localized swelling, mass and lump, left lower limb
CPT/HCPCS: 93970

== ENCOUNTER 2019-02-13 12:36 | Day surgery (SDC) | payer BC ==
[2019-02-13 13:14] VITALS: BP 108/74; PULSE 108; RESP 14; TEMP 98.5
--- NOTE | 2019-02-13 14:42 | US ---
Discontinued paracentesis HISTORY: Ascites, colon carcinoma No recent exams available for correlation. Ultrasound performed in all 4 quadrants. Minimal ascites is identified. There is a Solid cystic mass present in the midline is multilocular. IMPRESSION: No significant ascites is evident to perform paracentesis at this time. There is an abdom inal mass present.
== END 2019-02-13 13:30 | disposition home or self-care (01) ==
LOC: RADPROMAIN 12:36
PROVIDERS: ATTEND Internal Medicine Hematology & Oncology
DX: R18.8 Other ascites (principal); C18.9 Malignant neoplasm of colon, unspecified; Z53.8 Procedure and treatment not carried out for other reasons
CPT/HCPCS: 76705

== ENCOUNTER → 2019-02-27 | Outpatient (CLI) | payer BC ==
--- NOTE | 2019-02-27 15:05 | XR ---
EXAMINATION TYPE: XR abdomen complete w decub DATE OF EXAM: 02/27/2019 COMPARISON: NONE HISTORY: Nausea and vomiting TECHNIQUE: Supine, upright, and left side down lateral decubitus views of the abdomen are obtained. FINDINGS: Mediport catheter seen there subsegmental changes at the left lung base. Bowel gas pattern nonspecific. Postsurgical changes are noted. Calcifications the pelvis appear vascular. Retained feca l debris in the colon. IMPRESSION: 1. Nonspecific abdomen. 2. Left lower lobe atelectasis or early infiltrate.
== END | disposition home or self-care (01) ==
LOC: RADXRMAIN 14:35
PROVIDERS: ATTEND Internal Medicine Hematology & Oncology
DX: E86.0 Dehydration (principal); R11.2 Nausea with vomiting, unspecified; C18.1 Malignant neoplasm of appendix; C18.2 Malignant neoplasm of ascending colon
CPT/HCPCS: 74021

== ENCOUNTER → 2019-03-01 | Outpatient (CLI) | payer BC ==
--- NOTE | 2019-03-03 12:12 | PE ---
Nuclear medicine PET/CT HISTORY: Colon carcinoma, subsequent Patient received 10.5 mCi F-18 FDG intravenously in delayed scanning was performed from the skull bas e to the mid thighs. Localization and attenuation correction CT scan was performed. Correlation to prior nuclear medicine PET/CT dated 05/18/2018 Neck and chest: There is no suspicious hypermetabolic uptake present. No evident cervical, mediastina l, axillary, or hilar adenopathy. There is a port in the right pectoral region coursing via a right i nternal jugular vein approach into the cavoatrial junction level. No pleural or pericardial effusion. There is calcified nodule in the right lower lobe. Elevation of left hemidiaphragm is again seen. ABDOMEN: Interval development of large amount of ascites. Extensive omental caking is suspected, mild hypermetabolic uptake is associated along the anterior abdominal masses SUV 2.6. Possible adnexal ma ss showing low attenuation on the left. Postoperative changes are noted to the colon. Osseous structures within normal limits. IMPRESSION: Interval development of a large amount of ascites, abdominal masses are suspected consist ent with peritoneal disease, there is mild hypermetabolic uptake associated with it is believed to be omental caking.
== END ==
LOC: RADPETMAIN 11:52
PROVIDERS: ATTEND Internal Medicine Hematology & Oncology
DX: C18.2 Malignant neoplasm of ascending colon (principal); R18.8 Other ascites
CPT/HCPCS: 78815; A9552

== ENCOUNTER 2019-03-12 10:40 | Inpatient (IN) | payer BC ==
[2019-03-12] MEDS ORDERED: SODIUM CHLORIDE 0.9% 1,000 ML IV STA ×3 (11:15→12:52)
--- NOTE | 2019-03-12 11:23 | ED ---
General Adult HPI - General Chief complaint: Recheck/Abnormal Lab/Rx Stated complaint: Low BP Time Seen by Provider: 03/12/19 11:03 Source: patient, family, RN notes reviewed Mode of arrival: wheelchair Limitations: no limitations - History of Present Illness Initial comments: Patient is a pleasant 48-year-old female presenting to the emergency department with lightheadedness and high heart rate. Patient was sent over from Dr. Cantor's office. He was also stressed to the patient that she may need TPN. Patient states for the last 48 hours she has been vomiting and decreased oral intake. Patient has not had that much nausea and feels more like it is when she bends over she just vomits. Patient does have abdominal distention. Patient does have history of colon cancer with metastasis. Patient is status post surgery and currently on her second round of chemotherapy. The first round of chemotherapy did not help. Patient feels generally weak and fatigued and lightheaded. Patient reportedly also had a low blood pressure at the office. - Related Data Home Medications Medication Instructions Recorded Confirmed Famotidine [Pepcid] 20 mg PO HS 08/05/18 03/12/19 Ferrous Sulfate [Iron] 325 mg PO DAILY 08/05/18 03/12/19 Ondansetron [Zofran] 8 mg PO Q8HR PRN 08/05/18 03/12/19 Prochlorperazine [Compazine] 10 mg PO Q6H PRN 08/05/18 03/12/19 Gabapentin [Neurontin] 300 mg PO BID@0800,1200 09/16/18 03/12/19 LORazepam [Ativan] 0.5 mg PO TID PRN 12/09/18 03/12/19 traMADol HCL [Ultram] 50 mg PO Q6HR PRN 12/09/18 03/12/19 Amitriptyline HCl [Elavil] 25 mg PO HS 01/20/19 03/12/19 HYDROcodone/APAP 5-325MG [[facility] 1 tab PO Q8H PRN 01/20/19 03/12/19 5-325] Doxycycline [Vibramycin] 100 mg PO Q12H 02/04/19 03/12/19 Gabapentin [Neurontin] 600 mg PO HS 02/04/19 03/12/19 Rivaroxaban [Xarelto] 20 mg PO DAILY 02/04/19 03/12/19 Allergies Allergy/AdvReac Type Severity Reaction Status Date / Time No Known Allergies Allergy Verified 03/12/19 11:17 Review of Systems ROS Statement: Those systems with pertinent positive or pertinent negative responses have been documented in the HPI. ROS Other: All systems not noted in ROS Statement are negative. Constitutional: Denies: fever, chills Eyes: Denies: eye pain ENT: Denies: ear pain Respiratory: Denies: dyspnea Cardiovascular: Denies: chest pain, palpitations Endocrine: Reports: fatigue Gastrointestinal: Reports: vomiting, other (Distention). 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, colon polyps, roseacea History of Any Multi-Drug Resistant Organisms: None Reported Past Surgical History: No Surgical Hx Reported Additional Past Surgical History / Comment(s): right colectomy Past Anesthesia/Blood Transfusion Reactions: Postoperative Nausea & Vomiting (PONV) Past Psychological History: No Psychological Hx Reported Smoking Status: Former smoker Past Alcohol Use History: Daily Past Drug Use History: None Reported - Past Family History Father Family Medical History: Congestive Heart Failure (CHF), CVA/TIA, Diabetes Mellitus, Deep Vein Thrombosis (DVT), Myocardial Infarction ([place]) Additional Family Medical History / Comment(s): colon cancer, bladder ca, skin ca, prostate ca, BLOOD CLOT IN ARM Mother Additional Family Medical History / Comment(s): tumor on spine, non hodgkins lymphoma, leukemia General Exam Limitations: no limitations General appearance: alert, cachectic Head exam: Present: normocephalic Eye exam: Present: normal appearance, PERRL ENT exam: Present: mucous membranes dry Neck exam: Present: normal inspection Respiratory exam: Present: normal lung sounds bilaterally Cardiovascular Exam: Present: tachycardia GI/Abdominal exam: Present: distended. Absent: tenderness Extremities exam: Present: normal inspection. Absent: pedal edema, calf tenderness Neurological exam: Present: alert Psychiatric exam: Present: normal affect, normal mood Skin exam: Present: warm, dry Course Vital Signs 03/12/19 03/12/19 10:45 11:24 Temperature 97.9 F Pulse Rate 134 H 123 H Respiratory 20 18 Rate Blood Pressure 87/61 115/86 O2 Sat by Pulse 97 98 Oximetry - Reevaluation(s) Reevaluation #1: 03/12/19 12:53 Urinalysis is showing potential for infection. Patient does meet sepsis criteria with some concern for urinary tract infection. Blood culture and lactic acid and urine culture and IV antibiotics have been ordered. Patient is not hypotensive at this time. EKG Findings - EKG Comments: EKG Findings:: Sinus tachycardia 1:15. SD 136. QRS 90. QT 3:30. QTC 467. Normal axis. Normal QRS. No acute ST change. Medical Decision Making - Medical Decision Making Patient was reevaluated and updated. Case was discussed in detail with Dr. Maldonado, covering for Dr. Heaton, who did come down and evaluate patient and will admit. Consult will place with Dr. Cantor. - Lab Data Result diagrams: 03/12/19 11:14 03/12/19 11:14 Lab Results 03/12/19 03/12/19 03/12/19 Range/Units 11:14 11:14 11:14 WBC 13.6 H (3.8-10.6) k/uL RBC 4.20 (3.80-5.40) m/uL Hgb 9.4 L (11.4-16.0) gm/dL Hct 32.5 L (34.0-46.0) % MCV 77.5 L (80.0-100.0) fL MCH 22.3 L (25.0-35.0) pg MCHC 28.8 L (31.0-37.0) g/dL RDW 18.9 H (11.5-15.5) % Plt Count 627 H (150-450) k/uL Neutrophils % 79 % Lymphocytes % 8 % Monocytes % 9 % Eosinophils % 0 % Basophils % 0 % Neutrophils # 10.7 H (1.3-7.7) k/uL Lymphocytes # 1.1 (1.0-4.8) k/uL Monocytes # 1.2 H (0-1.0) k/uL Eosinophils # 0.1 (0-0.7) k/uL Basophils # 0.0 (0-0.2) k/uL Hypochromasia Marked Anisocytosis Slight Microcytosis Slight PT (9.0-12.0) sec INR (<1.2) APTT (22.0-30.0) sec Sodium 133 L (137-145) mmol/L Potassium 4.3 (3.5-5.1) mmol/L Chloride 93 L (98-107) mmol/L Carbon Dioxide 27 (22-30) mmol/L Anion Gap 13 mmol/L BUN 19 H (7-17) mg/dL Creatinine 0.92 (0.52-1.04) mg/dL Est GFR (CKD-EPI)AfAm 85 (>60 ml/min/1.73 sqM) Est GFR (CKD-EPI)NonAf 74 (>60 ml/min/1.73 sqM) Glucose 181 H (74-99) mg/dL Plasma Lactic Acid Johnny 3.3 H* (0.7-2.0) mmol/L Calcium 9.2 (8.4-10.2) mg/dL Phosphorus 4.7 H (2.5-4.5) mg/dL Magnesium 1.9 (1.6-2.3) mg/dL Total Bilirubin 0.5 (0.2-1.3) mg/dL AST 28 (14-36) U/L ALT 27 (9-52) U/L Alkaline Phosphatase 318 H (38-126) U/L Total Protein 6.2 L (6.3-8.2) g/dL Albumin 3.1 L (3.5-5.0) g/dL TSH 2.250 (0.465-4.680) mIU/L Urine Color Urine Appearance (Clear) Urine pH (5.0-8.0) Ur Specific [place] (1.001-1.035) Urine Protein (Negative) Urine Glucose (UA) (Negative) Urine Ketones (Negative) Urine Blood (Negative) Urine Nitrite (Negative) Urine Bilirubin (Negative) Urine Urobilinogen (<2.0) mg/dL Ur Leukocyte Esterase (Negative) Urine RBC (0-5) /hpf Urine WBC (0-5) /hpf Ur Squamous Epith Cells (0-4) /hpf Urine Bacteria (None) /hpf Hyaline Casts (0-2) /lpf Urine Mucus (None) /hpf 03/12/19 03/12/19 Range/Units 11:14 12:13 WBC (3.8-10.6) k/uL RBC (3.80-5.40) m/uL Hgb (11.4-16.0) gm/dL Hct (34.0-46.0) % MCV (80.0-100.0) fL MCH (25.0-35.0) pg MCHC (31.0-37.0) g/dL RDW (11.5-15.5) % Plt Count (150-450) k/uL Neutrophils % % Lymphocytes % % Monocytes % % Eosinophils % % Basophils % % Neutrophils # (1.3-7.7) k/uL Lymphocytes # (1.0-4.8) k/uL Monocytes # (0-1.0) k/uL Eosinophils # (0-0.7) k/uL Basophils # (0-0.2) k/uL Hypochromasia Anisocytosis Microcytosis PT 15.8 H (9.0-12.0) sec INR 1.6 H (<1.2) APTT 33.0 H (22.0-30.0) sec Sodium (137-145) mmol/L Potassium (3.5-5.1) mmol/L Chloride (98-107) mmol/L Carbon Dioxide (22-30) mmol/L Anion Gap mmol/L BUN (7-17) mg/dL Creatinine (0.52-1.04) mg/dL Est GFR (CKD-EPI)AfAm (>60 ml/min/1.73 sqM) Est GFR (CKD-EPI)NonAf (>60 ml/min/1.73 sqM) Glucose (74-99) mg/dL Plasma Lactic Acid Johnny (0.7-2.0) mmol/L Calcium (8.4-10.2) mg/dL Phosphorus (2.5-4.5) mg/dL Magnesium (1.6-2.3) mg/dL Total Bilirubin (0.2-1.3) mg/dL AST (14-36) U/L ALT (9-52) U/L Alkaline Phosphatase (38-126) U/L Total Protein (6.3-8.2) g/dL Albumin (3.5-5.0) g/dL TSH (0.465-4.680) mIU/L Urine Color Dark Brown Urine Appearance Turbid H (Clear) Urine pH 6.0 (5.0-8.0) Ur Specific [place] 1.038 H (1.001-1.035) Urine Protein 2+ H (Negative) Urine Glucose (UA) Trace H (Negative) Urine Ketones Negative (Negative) Urine Blood Trace H (Negative) Urine Nitrite Negative (Negative) Urine Bilirubin 1+ H (Negative) Urine Urobilinogen 2.0 (<2.0) mg/dL Ur Leukocyte Esterase Large H (Negative) Urine RBC 26 H (0-5) /hpf Urine WBC 81 H (0-5) /hpf Ur Squamous Epith Cells 61 H (0-4) /hpf Urine Bacteria Rare H (None) /hpf Hyaline Casts 32 H (0-2) /lpf Urine Mucus Many H (None) /hpf - Radiology Data Radiology results: image reviewed (Chest x-ray shows no acute process) Critical Care Time Critical Care Time: Yes Total Critical Care Time: 32 Disposition Clinical Impression: Dehydration, UTI (urinary tract infection), Sepsis, Colon cancer Disposition: ADMITTED IP TO THIS HOSP Condition: Serious Is patient prescribed a controlled substance at d/c from ED?: No Referrals: Yael Goldberg MD [Primary Care Provider] - 1-2 days Decision Time: 12:54
[2019-03-12 11:28] LABS: Anisocytosis Slight; Basophils % (A) 0 %; Eosinophils # (A) 0.1 k/uL (0-0.7); Eosinophils % (A) 0 %; HCT 32.5 % (34.0-46.0); HGB 9.4 gm/dL (11.4-16.0); Hypochromasia Marked; Lymphocytes # (A) 1.1 k/uL (1.0-4.8); Lymphocytes % (A) 8 %; MCH 22.3 pg (25.0-35.0); MCHC 28.8 g/dL (31.0-37.0); MCV 77.5 fL (80.0-100.0); Mean Platelet Volume 6.8; Microcytosis Slight; Monocytes # (A) 1.2 k/uL (0-1.0); Monocytes % (A) 9 %; Neutrophils # (A) 10.7 k/uL (1.3-7.7); Neutrophils % (A) 79 %; Platelet Count 627 k/uL (150-450); RDW 18.9 % (11.5-15.5); WBC 13.6 k/uL (3.8-10.6)
--- NOTE | 2019-03-12 11:38 | XR ---
EXAMINATION TYPE: XR chest 2V DATE OF EXAM: 03/12/2019 COMPARISON: None INDICATION: Weakness low blood pressure colon cancer TECHNIQUE: Frontal and lateral views of the chest are obtained. FINDINGS: The heart size is normal. The pulmonary vasculature is normal. Minimal platelike atelectasis along the left diaphragm.. Port is present on the right with the tip i n superior vena cava region. IMPRESSION: 1. Minimal left basilar plate atelectasis.
[2019-03-12 11:43] LABS: Albumin 3.1 g/dL (3.5-5.0); Calcium 9.2 mg/dL (8.4-10.2); Magnesium 1.9 mg/dL (1.6-2.3); Phosphorus 4.7 mg/dL (2.5-4.5); Potassium 4.3 mmol/L (3.5-5.1); Total Bilirubin 0.5 mg/dL (0.2-1.3); Total Protein 6.2 g/dL (6.3-8.2)
[2019-03-12 11:50] LABS: INR 1.6 (<1.2); Prothrombin Time 15.8 sec (9.0-12.0)
[2019-03-12 12:44] LABS: Appearance,Urine Turbid (Clear); Bacteria,Urine Rare /hpf; Bilirubin,Urine 1+ (Negative); Blood,Urine Trace (Negative); Color,Urine Dark Brown; Glucose,Urine (UA) Trace (Negative); Hyaline Casts,Urine 32 /lpf (0-2); Ketones,Urine Negative (Negative); Leukocyte Esterase,Urine Large (Negative); Mucus,Urine Many /hpf; Nitrite,Urine Negative (Negative); Protein,Urine 2+ (Negative); RBC,Urine 26 /hpf (0-5); Specific Gravity,Urine 1.038 (1.001-1.035); Squamous Epithelial Cell,Urine 61 /hpf (0-4); WBC,Urine 81 /hpf (0-5)
[2019-03-12] MEDS ORDERED: cefTRIAXone IN SWFI 1,000 MG/10 ML SYRINGE IVP STA (12:53)
[2019-03-12] MEDS ORDERED: ONDANSETRON 4 MG/2 ML VIAL IVP PRN (12:54)
[2019-03-12] MEDS ORDERED: NALOXONE 0.4 MG/ML 1 ML VIAL IV PRN (12:54)
[2019-03-12] MEDS ORDERED: PROCHLORPERAZINE 10 MG TAB PO PRN (13:00)
[2019-03-12] MEDS ORDERED: ONDANSETRON 4 MG TAB PO PRN (13:00)
--- NOTE | 2019-03-12 13:26 | ED ---
Medical Decision Making - Lab Data Result diagrams: 03/12/19 11:14 03/12/19 11:14 Lab Results 03/12/19 03/12/19 03/12/19 Range/Units 11:14 11:14 11:14 WBC 13.6 H (3.8-10.6) k/uL RBC 4.20 (3.80-5.40) m/uL Hgb 9.4 L (11.4-16.0) gm/dL Hct 32.5 L (34.0-46.0) % MCV 77.5 L (80.0-100.0) fL MCH 22.3 L (25.0-35.0) pg MCHC 28.8 L (31.0-37.0) g/dL RDW 18.9 H (11.5-15.5) % Plt Count 627 H (150-450) k/uL Neutrophils % 79 % Lymphocytes % 8 % Monocytes % 9 % Eosinophils % 0 % Basophils % 0 % Neutrophils # 10.7 H (1.3-7.7) k/uL Lymphocytes # 1.1 (1.0-4.8) k/uL Monocytes # 1.2 H (0-1.0) k/uL Eosinophils # 0.1 (0-0.7) k/uL Basophils # 0.0 (0-0.2) k/uL Hypochromasia Marked Anisocytosis Slight Microcytosis Slight PT (9.0-12.0) sec INR (<1.2) APTT (22.0-30.0) sec Sodium 133 L (137-145) mmol/L Potassium 4.3 (3.5-5.1) mmol/L Chloride 93 L (98-107) mmol/L Carbon Dioxide 27 (22-30) mmol/L Anion Gap 13 mmol/L BUN 19 H (7-17) mg/dL Creatinine 0.92 (0.52-1.04) mg/dL Est GFR (CKD-EPI)AfAm 85 (>60 ml/min/1.73 sqM) Est GFR (CKD-EPI)NonAf 74 (>60 ml/min/1.73 sqM) Glucose 181 H (74-99) mg/dL Plasma Lactic Acid Johnny 3.3 H* (0.7-2.0) mmol/L Calcium 9.2 (8.4-10.2) mg/dL Phosphorus 4.7 H (2.5-4.5) mg/dL Magnesium 1.9 (1.6-2.3) mg/dL Total Bilirubin 0.5 (0.2-1.3) mg/dL AST 28 (14-36) U/L ALT 27 (9-52) U/L Alkaline Phosphatase 318 H (38-126) U/L Total Protein 6.2 L (6.3-8.2) g/dL Albumin 3.1 L (3.5-5.0) g/dL TSH 2.250 (0.465-4.680) mIU/L Urine Color Urine Appearance (Clear) Urine pH (5.0-8.0) Ur Specific [place] (1.001-1.035) Urine Protein (Negative) Urine Glucose (UA) (Negative) Urine Ketones (Negative) Urine Blood (Negative) Urine Nitrite (Negative) Urine Bilirubin (Negative) Urine Urobilinogen (<2.0) mg/dL Ur Leukocyte Esterase (Negative) Urine RBC (0-5) /hpf Urine WBC (0-5) /hpf Ur Squamous Epith Cells (0-4) /hpf Urine Bacteria (None) /hpf Hyaline Casts (0-2) /lpf Urine Mucus (None) /hpf 03/12/19 03/12/19 Range/Units 11:14 12:13 WBC (3.8-10.6) k/uL RBC (3.80-5.40) m/uL Hgb (11.4-16.0) gm/dL Hct (34.0-46.0) % MCV (80.0-100.0) fL MCH (25.0-35.0) pg MCHC (31.0-37.0) g/dL RDW (11.5-15.5) % Plt Count (150-450) k/uL Neutrophils % % Lymphocytes % % Monocytes % % Eosinophils % % Basophils % % Neutrophils # (1.3-7.7) k/uL Lymphocytes # (1.0-4.8) k/uL Monocytes # (0-1.0) k/uL Eosinophils # (0-0.7) k/uL Basophils # (0-0.2) k/uL Hypochromasia Anisocytosis Microcytosis PT 15.8 H (9.0-12.0) sec INR 1.6 H (<1.2) APTT 33.0 H (22.0-30.0) sec Sodium (137-145) mmol/L Potassium (3.5-5.1) mmol/L Chloride (98-107) mmol/L Carbon Dioxide (22-30) mmol/L Anion Gap mmol/L BUN (7-17) mg/dL Creatinine (0.52-1.04) mg/dL Est GFR (CKD-EPI)AfAm (>60 ml/min/1.73 sqM) Est GFR (CKD-EPI)NonAf (>60 ml/min/1.73 sqM) Glucose (74-99) mg/dL Plasma Lactic Acid Johnny (0.7-2.0) mmol/L Calcium (8.4-10.2) mg/dL Phosphorus (2.5-4.5) mg/dL Magnesium (1.6-2.3) mg/dL Total Bilirubin (0.2-1.3) mg/dL AST (14-36) U/L ALT (9-52) U/L Alkaline Phosphatase (38-126) U/L Total Protein (6.3-8.2) g/dL Albumin (3.5-5.0) g/dL TSH (0.465-4.680) mIU/L Urine Color Dark Brown Urine Appearance Turbid H (Clear) Urine pH 6.0 (5.0-8.0) Ur Specific [place] 1.038 H (1.001-1.035) Urine Protein 2+ H (Negative) Urine Glucose (UA) Trace H (Negative) Urine Ketones Negative (Negative) Urine Blood Trace H (Negative) Urine Nitrite Negative (Negative) Urine Bilirubin 1+ H (Negative) Urine Urobilinogen 2.0 (<2.0) mg/dL Ur Leukocyte Esterase Large H (Negative) Urine RBC 26 H (0-5) /hpf Urine WBC 81 H (0-5) /hpf Ur Squamous Epith Cells 61 H (0-4) /hpf Urine Bacteria Rare H (None) /hpf Hyaline Casts 32 H (0-2) /lpf Urine Mucus Many H (None) /hpf Disposition Clinical Impression: Dehydration, UTI (urinary tract infection), Sepsis, Colon cancer Disposition: ADMITTED IP TO THIS [facility] Condition: Serious Is patient prescribed a controlled substance at d/c from ED?: No Referrals: Yael Goldberg MD [Primary Care Provider] - 1-2 days Procedures - Sepsis Sepsis Focused Exam #1 Time Sepsis Criteria Met: 12:53 Sepsis Focused Exam Date: 03/12/19 Sepsis Focused Exam Time: 13:26 Sepsis Focused Exam Complete: Yes Vital Signs & RN Notes Reviewed: Yes Capillary Refill: < 2 Seconds: Fingers, Toes Peripheral Pulses: Normal: Radial (R), Radial (L) Skin Color: Normal for Patient Respiratory Exam: normal lung sounds Cardiovascular Exam: tachycardia
[2019-03-12] MEDS: traMADol 50 MG TAB PO PRN ×2 (14:41→20:44)
--- NOTE | 2019-03-12 15:39 | P.HPIM ---
<Portillo Maldonado - Last Filed: 03/12/19 15:45> Past Medical History Past Medical History: Cancer Additional Past Medical History / Comment(s): Patient does have a family history of Marshall syndrome, bilateral pulmonary emboli, recurrent ascites, metastatic colon cancer. Medications and Allergies Home Medications Medication Instructions Recorded Confirmed Type Famotidine [Pepcid] 20 mg PO HS 08/05/18 03/12/19 History Ferrous Sulfate [Iron] 325 mg PO DAILY 08/05/18 03/12/19 History Ondansetron [Zofran] 8 mg PO Q8HR PRN 08/05/18 03/12/19 History Prochlorperazine [Compazine] 10 mg PO Q6H PRN 08/05/18 03/12/19 History Gabapentin [Neurontin] 300 mg PO BID@0800,1200 09/16/18 03/12/19 History LORazepam [Ativan] 0.5 mg PO TID PRN 12/09/18 03/12/19 History traMADol HCL [Ultram] 50 mg PO Q6HR PRN 12/09/18 03/12/19 History Amitriptyline HCl [Elavil] 25 mg PO HS 01/20/19 03/12/19 History HYDROcodone/APAP 5-325MG [[place] 1 tab PO Q8H PRN 01/20/19 03/12/19 History 5-325] Doxycycline [Vibramycin] 100 mg PO Q12H 02/04/19 03/12/19 History Gabapentin [Neurontin] 600 mg PO HS 02/04/19 03/12/19 History Rivaroxaban [Xarelto] 20 mg PO DAILY 02/04/19 03/12/19 History Allergies Allergy/AdvReac Type Severity Reaction Status Date / Time No Known Allergies Allergy Verified 03/12/19 11:17 Physical Exam Vitals: Vital Signs Temp Pulse Resp BP Pulse Ox 03/12/19 14:00 110 H 20 98/56 98 03/12/19 11:24 123 H 18 115/86 98 03/12/19 10:45 97.9 F 134 H 20 87/61 97 Intake and Output 03/12/19 03/12/19 03/12/19 06:59 14:59 22:59 Other: Weight 65.317 kg Results CBC & Chem 7: 03/12/19 11:14 03/12/19 11:14 Labs: Abnormal Lab Results - Last 24 Hours (Table) 03/12/19 03/12/19 03/12/19 Range/Units 11:14 11:14 11:14 WBC 13.6 H (3.8-10.6) k/uL Hgb 9.4 L (11.4-16.0) gm/dL Hct 32.5 L (34.0-46.0) % MCV 77.5 L (80.0-100.0) fL MCH 22.3 L (25.0-35.0) pg MCHC 28.8 L (31.0-37.0) g/dL RDW 18.9 H (11.5-15.5) % Plt Count 627 H (150-450) k/uL Neutrophils # 10.7 H (1.3-7.7) k/uL Monocytes # 1.2 H (0-1.0) k/uL PT (9.0-12.0) sec INR (<1.2) APTT (22.0-30.0) sec Sodium 133 L (137-145) mmol/L Chloride 93 L (98-107) mmol/L BUN 19 H (7-17) mg/dL Glucose 181 H (74-99) mg/dL Plasma Lactic Acid Johnny 3.3 H* (0.7-2.0) mmol/L Phosphorus 4.7 H (2.5-4.5) mg/dL Alkaline Phosphatase 318 H (38-126) U/L Total Protein 6.2 L (6.3-8.2) g/dL Albumin 3.1 L (3.5-5.0) g/dL Urine Appearance (Clear) Ur Specific [place] (1.001-1.035) Urine Protein (Negative) Urine Glucose (UA) (Negative) Urine Blood (Negative) Urine Bilirubin (Negative) Ur Leukocyte Esterase (Negative) Urine RBC (0-5) /hpf Urine WBC (0-5) /hpf Ur Squamous Epith Cells (0-4) /hpf Urine Bacteria (None) /hpf Hyaline Casts (0-2) /lpf Urine Mucus (None) /hpf 03/12/19 03/12/19 Range/Units 11:14 12:13 WBC (3.8-10.6) k/uL Hgb (11.4-16.0) gm/dL Hct (34.0-46.0) % MCV (80.0-100.0) fL MCH (25.0-35.0) pg MCHC (31.0-37.0) g/dL RDW (11.5-15.5) % Plt Count (150-450) k/uL Neutrophils # (1.3-7.7) k/uL Monocytes # (0-1.0) k/uL PT 15.8 H (9.0-12.0) sec INR 1.6 H (<1.2) APTT 33.0 H (22.0-30.0) sec Sodium (137-145) mmol/L Chloride (98-107) mmol/L BUN (7-17) mg/dL Glucose (74-99) mg/dL Plasma Lactic Acid Johnny (0.7-2.0) mmol/L Phosphorus (2.5-4.5) mg/dL Alkaline Phosphatase (38-126) U/L Total Protein (6.3-8.2) g/dL Albumin (3.5-5.0) g/dL Urine Appearance Turbid H (Clear) Ur Specific [place] 1.038 H (1.001-1.035) Urine Protein 2+ H (Negative) Urine Glucose (UA) Trace H (Negative) Urine Blood Trace H (Negative) Urine Bilirubin 1+ H (Negative) Ur Leukocyte Esterase Large H (Negative) Urine RBC 26 H (0-5) /hpf Urine WBC 81 H (0-5) /hpf Ur Squamous Epith Cells 61 H (0-4) /hpf Urine Bacteria Rare H (None) /hpf Hyaline Casts 32 H (0-2) /lpf Urine Mucus Many H (None) /hpf <Lizy Sin A - Last Filed: 03/13/19 13:36> History of Present Illness H&P Date: 03/12/19 Chief Complaint: Lightheadedness, tachycardia This is a 48-year-old female patient of Dr. Goldberg and Dr. Massey with past medical history of colon cancer with metastatic disease status post right hemicolectomy and appendectomy. Patient also has history of pulmonary embolism, gastroesophageal reflux disease, remote history of tobacco use and dependence and dermatitis from chemotherapy, chronic back pain. Patient most recently been on chemotherapy with Camptosar and Vectibix. She underwent her first paracentesis on March 06 with 2-1/2 L removed at [facility]. Patient states that her abdomen is smaller than before paracentesis. She also states lower extremity edema is improved. Patient gives history that she is eating very little and having trouble taking pills that causes her vomiting. She denies any sore throat. The patient is vomiting frequently but does feel that she would like to eat. Patient also, complains of generalized weakness and fatigue as well as lightheadedness. Patient was seen at Dr. Massey's office and sent over to [facility] emergency center for evaluation. Her initial heart rate was 134 and blood pressure 87/61, she was afebrile. EKG was a sinus tachycardia with no acute ST changes. WBC 13.6, hemoglobin 9.4, platelet count 627. Sodium 133, potassium 4.3, chloride 93, CO2 27, BUN 19 creatinine 0.92, blood sugar 181. Patient denies history of diabetes. Lactic a patricia was 3.3. Phosphorus 4.7, alkaline phosphatase 3.8 and other liver function tests within normal limits, TSH 2.250. Urinalysis dark brown, turbid, leukoesterase large, squamous cell 61. Chest x-ray shows no acute process. Patient admitted to the [facility] floor and continued on IV fluids, Rocephin, consult with oncology. Patient is on Zofran for nausea and morphine for pain control. Patient would like diet advanced to regular and agreed on chopped diet. Review of Systems All systems: negative Constitutional: Reports fatigue, Reports lethargy, Reports poor appetite, Reports weakness, Reports weight loss, Denies chills, Denies fever Eyes: denies blurred vision, denies pain Ears, nose, mouth and throat: Reports vertigo, Denies dental pain, Denies headache, Denies mouth pain, Denies sore throat Cardiovascular: Reports leg edema, Reports lightheadedness, Denies chest pain, Denies decreased exercise tolerance, Denies dyspnea on exertion, Denies edema, Denies shortness of breath, Denies syncope Respiratory: Denies cough, Denies cough with sputum, Denies dyspnea, Denies excessive sputum, Denies hemoptysis, Denies home oxygen, Denies wheezing Gastrointestinal: Reports bloating, Reports nausea, Reports vomiting, Denies abdominal pain, Denies diarrhea, Denies hematemesis, Denies hematochezia, Denies jaundice Genitourinary: Denies dysuria, Denies hematuria, Denies urgency, Denies urinary frequency Musculoskeletal: Reports muscle weakness, Denies frequent falls, Denies gait dysfunction, Denies myalgias Integumentary: Reports lesions, Denies pruritus, Denies rash, Denies wounds Neurological: Denies aphasia, Denies change in mentation, Denies change in speech, Denies confusion, Denies head injury, Denies headaches, Denies numbness, Denies seizures, Denies weakness Psychiatric: Denies anxiety, Denies depression Endocrine: Denies fatigue, Denies weight change Past Medical History Past Medical History: Cancer, Skin Disorder Additional Past Medical History / Comment(s): colon CA with mets to pelvis and periteum with secondary CA on appendix, colon polyps, roseacea History of Any Multi-Drug Resistant Organisms: None Reported Past Surgical History: No Surgical Hx Reported, Appendectomy Additional Past Surgical History / Comment(s): right colectomy Past Anesthesia/Blood Transfusion Reactions: Postoperative Nausea & Vomiting (PONV) Past Psychological History: No Psychological Hx Reported Smoking Status: Former smoker Past Alcohol Use History: Daily Additional Past Alcohol Use History / Comment(s): Patient was smoker up to 3 packs per week for 30 years and quit in April 2018. She has no alcohol intake at this time but in the past drank a few glasses of red wine per day. She lives at home with her . Past Drug Use History: None Reported Additional History: Patient does have a family history of Marshall syndrome, bilateral pulmonary emboli, recurrent ascites, metastatic colon cancer. - Past Family History Father Family Medical History: Congestive Heart Failure (CHF), CVA/TIA, Diabetes Mellitus, Deep Vein Thrombosis (DVT), Myocardial Infarction (NH) Additional Family Medical History / Comment(s): Father at age 72 with history of colon cancer, bladder ca, skin ca, prostate ca, BLOOD CLOT IN ARM, stroke, NH at age 60. Mother Additional Family Medical History / Comment(s): Mother is age 75 with non- Hodgkin's lymphoma stage IV. Brother(s) Additional Family Medical History / Comment(s): Patient has 2 brothers with no major medical problems. Patient has 2 sisters one has endometriosis and 1 hypertension. Patient has 4 children with no major medical problems. Physical Exam Vitals: Vital Signs Temp Pulse Resp BP Pulse Ox 03/12/19 11:24 123 H 18 115/86 98 03/12/19 10:45 97.9 F 134 H 20 87/61 97 Intake and Output 03/11/19 03/12/19 03/12/19 22:59 06:59 14:59 Other: Weight 65.317 kg Gen: This is a thin 48-year-old female. She is resting the ER stretcher and appears to be comfortable. HEENT: Head is atraumatic, normocephalic. Pupils equal, round. Sclerae is anicteric. Oral mucous members slightly dry. NECK: Supple. No JVD. No lymphadenopathy. No thyromegaly. LUNGS: Clear to auscultation. No wheezes or rhonchi. No intercostal retractions. HEART: Regular rate and rhythm. No murmur. ABDOMEN: Soft. Abdominal distention. Bowel sounds are present. No masses. Minimal generalized tenderness. EXTREMITIES: Trace bilateral pedal edema slightly increased on the left. No calf nor thigh tenderness. NEUROLOGICAL: Patient is awake, alert and oriented x3. Cranial nerves 2 through 12 are grossly intact. Results CBC & Chem 7: 03/13/19 09:05 03/13/19 09:05 Labs: Abnormal Lab Results - Last 24 Hours (Table) 03/12/19 03/12/19 03/12/19 Range/Units 11:14 11:14 11:14 WBC 13.6 H (3.8-10.6) k/uL Hgb 9.4 L (11.4-16.0) gm/dL Hct 32.5 L (34.0-46.0) % MCV 77.5 L (80.0-100.0) fL MCH 22.3 L (25.0-35.0) pg MCHC 28.8 L (31.0-37.0) g/dL RDW 18.9 H (11.5-15.5) % Plt Count 627 H (150-450) k/uL Neutrophils # 10.7 H (1.3-7.7) k/uL Monocytes # 1.2 H (0-1.0) k/uL PT (9.0-12.0) sec INR (<1.2) APTT (22.0-30.0) sec Sodium 133 L (137-145) mmol/L Chloride 93 L (98-107) mmol/L BUN 19 H (7-17) mg/dL Glucose 181 H (74-99) mg/dL Plasma Lactic Acid Johnny 3.3 H* (0.7-2.0) mmol/L Phosphorus 4.7 H (2.5-4.5) mg/dL Alkaline Phosphatase 318 H (38-126) U/L Total Protein 6.2 L (6.3-8.2) g/dL Albumin 3.1 L (3.5-5.0) g/dL Urine Appearance (Clear) Ur Specific [place] (1.001-1.035) Urine Protein (Negative) Urine Glucose (UA) (Negative) Urine Blood (Negative) Urine Bilirubin (Negative) Ur Leukocyte Esterase (Negative) Urine RBC (0-5) /hpf Urine WBC (0-5) /hpf Ur Squamous Epith Cells (0-4) /hpf Urine Bacteria (None) /hpf Hyaline Casts (0-2) /lpf Urine Mucus (None) /hpf 03/12/19 03/12/19 Range/Units 11:14 12:13 WBC (3.8-10.6) k/uL Hgb (11.4-16.0) gm/dL Hct (34.0-46.0) % MCV (80.0-100.0) fL MCH (25.0-35.0) pg MCHC (31.0-37.0) g/dL RDW (11.5-15.5) % Plt Count (150-450) k/uL Neutrophils # (1.3-7.7) k/uL Monocytes # (0-1.0) k/uL PT 15.8 H (9.0-12.0) sec INR 1.6 H (<1.2) APTT 33.0 H (22.0-30.0) sec Sodium (137-145) mmol/L Chloride (98-107) mmol/L BUN (7-17) mg/dL Glucose (74-99) mg/dL Plasma Lactic Acid Johnny (0.7-2.0) mmol/L Phosphorus (2.5-4.5) mg/dL Alkaline Phosphatase (38-126) U/L Total Protein (6.3-8.2) g/dL Albumin (3.5-5.0) g/dL Urine Appearance Turbid H (Clear) Ur Specific [place] 1.038 H (1.001-1.035) Urine Protein 2+ H (Negative) Urine Glucose (UA) Trace H (Negative) Urine Blood Trace H (Negative) Urine Bilirubin 1+ H (Negative) Ur Leukocyte Esterase Large H (Negative) Urine RBC 26 H (0-5) /hpf Urine WBC 81 H (0-5) /hpf Ur Squamous Epith Cells 61 H (0-4) /hpf Urine Bacteria Rare H (None) /hpf Hyaline Casts 32 H (0-2) /lpf Urine Mucus Many H (None) /hpf Thrombosis Risk Factor Assmnt - DVT/VTE Prophylaxis DVT/VTE Prophylaxis: Pharmacologic Prophylaxis ordered Assessment and Plan Plan: 1. Intractable nausea and vomiting secondary to colon cancer. Patient to continue IV fluids, diet advanced to chopped, continue Zofran for nausea and Dilaudid for pain control. Consult with Dr. Massey. 2. Hypotension and lightheadedness secondary to hypovolemia from nausea and vomiting. 3. Pulmonary embolism. Continue Xarelto. 4. History of ascending colon cancer status post right colectomy with metastatic disease. Patient is currently under care of Dr. Massey and chemotherapy with Camptosar and Vectibix. 5. Ascites status post paracentesis March 06 with removal of 20 half liters. 6. Possible urinary tract infection and immunocompromise host, patient is a symptomatic and urinalysis has squamous cells 61 making this unlikely. Patient will continue on ceftriaxone. 7. Chemo-induced dermatitis. Patient is normally on doxycycline which will be placed on hold while on ceftriaxone. 8. Gastroesophageal reflux disease. Continue Protonix. 9. Chronic pain syndrome. Continue tramadol, [place]. 10. Generalized anxiety disorder. Continue Ativan 0.5 mg 3 times daily as needed and amitriptyline 25 mg at bedtime. 11. Peripheral neuropathy. Continue gabapentin 300 mg twice daily and 600 mg at bedtime. 12. Severe protein calorie malnutrition secondary to cancer. Protein supplementation. 13. DVT prophylaxis. Xarelto. Patient will be admitted to the hospital for a minimum of 2 night stay. Discharge plan: Return home Impression and plan of care have been directed as dictated by the signing physician. Lizy Sin nurse practitioner acting as scribe for signing physician.
--- NOTE | 2019-03-12 19:53 | XR ---
EXAMINATION TYPE: XR abdomen 2V DATE OF EXAM: 03/12/2019 COMPARISON: 02/27/2019 radiographs HISTORY: Abdominal pain and distention; hx colon CA TECHNIQUE: 2 supine views FINDINGS: There is diffuse homogeneous added opacity over the abdomen and pelvis, consistent with marked ascite s seen on the recent PET/CT. The bowel gas pattern is normal, although excessive pancolonic stool is noted. Note: Supine radiography cannot exclude abnormal gas collections. IMPRESSION: Ascites.
[2019-03-12] MEDS: SODIUM CHLORIDE 0.9% 1,000 ML IV SCH ×2 (19:55→21:02)
[2019-03-12] MEDS: GABAPENTIN 300 MG CAP PO SCH (20:01)
[2019-03-12] MEDS: LORazepam 0.5 MG TAB PO PRN (20:44)
[2019-03-12] MEDS: AMITRIPTYLINE HCL 25 MG TAB PO SCH ×2 (20:44→21:01)
[2019-03-12] MEDS ORDERED: DOXYCYCLINE 100 MG CAP PO SCH (21:00)
[2019-03-12] MEDS ORDERED: FAMOTIDINE 20 MG TAB PO SCH (21:00)
[2019-03-13] MEDS: HYDROcodone/APAP 5-325MG 1 EACH TAB PO PRN ×2 (00:22→20:06)
[2019-03-13] MEDS: GABAPENTIN 300 MG CAP PO SCH ×3 (08:19→20:05)
[2019-03-13] MEDS: PANTOPRAZOLE 40 MG/10 ML VIAL IV SCH (08:19)
[2019-03-13] MEDS: FERROUS SULFATE 325 MG TAB PO SCH (08:19)
[2019-03-13] MEDS: traMADol 50 MG TAB PO PRN ×2 (08:21→15:57)
[2019-03-13] MEDS: SODIUM CHLORIDE 0.9% 1,000 ML IV SCH ×2 (08:29→16:50)
[2019-03-13] MEDS ORDERED: RIVAROXABAN 20 MG TAB PO SCH (09:00)
--- NOTE | 2019-03-13 09:45 | CDI ---
Documentation Clarification Form Date: 03/13/2019 9:16:30 AM From: Cielo Obando RN, CCDS Admit Date: 03/13/2019 8:16:00 AM Patient Name: Lyn Ahmadi Visit Number: [id number] Discharge Date: ATTENTION: The Clinical Documentation Specialists (CDI) and [facility] Coding Staff appreciate your assistance in clarifying documentation. Please respond to the clarification below the line at the bottom and electronically sign. The CDI & [facility] Coding staff will review the response and follow-up if needed. Please note: Queries are made part of the Legal Health Record. If you have any questions, please contact the author of this message via ITS. Dr. Portillo Maldonado The patient presented with lightheadedness and high heart rate. History/Risk Factors: Pulmonary Embolism, Colon cancer with metastasis, to pelvis Clinical Indicators: 48-year-old female with present with complaints of lightheadedness. ED evaluation has urinalysis showing potential for infection, with impression, patient does meet sepsis criteria. WBC 13.6, Lactic acid: 3.3 EKG: Sinus tachycardia 115 bpm Ua: Appearance turbid, Ur Leukocyte Esterase-Large Urine culture-Pending Vitals signs on admission: 87/61 134 20 97.9 , 115/86 123 18 Other Clinical Indicators: She recently received chemotherapy. She reports fatigue, lethargy, poor appetite, weakness. Treatment: Monitor CBC, Lytes Rocephin IV IF Fluids@100 mls/hr IV Bolus x2 In your professional opinion, please clarify if these findings signify one of the following conditions, whether the condition is POA, and cause, if known: Condition Sepsis ruled out Sepsis ruled in Other, please specify Unable to determine Present on Admission Yes No SIRS Criteria (2 or more of the following may indicate SIRS): -Temperature < 96.8F (36C) or > 101.0F (38.3C) -Heart Rate > 90 bpm -Respiratory Rate > 20 breaths/min or PaCO2 < 32 mmHg -White Blood Cell Count > 12,000 or < 4,000 cells/mm3 or > 10% bands -Lactate >2.0 mmol/L (>4.0 is equivalent to septic shock) (Last Revision: January 2018) MTDD
[2019-03-13 10:17] LABS: Anion Gap 8 mmol/L; Blood Urea Nitrogen 17 mg/dL (7-17); Calcium 8.4 mg/dL (8.4-10.2); Carbon Dioxide 26 mmol/L (22-30); Chloride 98 mmol/L (98-107); Glucose 115 mg/dL (74-99); Potassium 4.3 mmol/L (3.5-5.1); Sodium 132 mmol/L (137-145)
[2019-03-13 10:34] LABS: Anisocytosis Slight; Basophils % (A) 0 %; Eosinophils # (A) 0.1 k/uL (0-0.7); Eosinophils % (A) 1 %; HCT 26.8 % (34.0-46.0); Hypochromasia Marked; Lymphocytes # (A) 1.3 k/uL (1.0-4.8); Lymphocytes % (A) 15 %; MCH 22.9 pg (25.0-35.0); MCHC 29.1 g/dL (31.0-37.0); MCV 78.6 fL (80.0-100.0); Mean Platelet Volume 7.3; Microcytosis Slight; Monocytes % (A) 11 %; Neutrophils % (A) 71 %; Platelet Count 502 k/uL (150-450); RBC 3.41 m/uL (3.80-5.40); RDW 18.2 % (11.5-15.5); WBC 8.5 k/uL (3.8-10.6)
[2019-03-13 10:50] LABS: HGB 7.8 gm/dL (11.4-16.0)
[2019-03-13] MEDS ORDERED: MORPHINE SULFATE 4 MG/ML SYRINGE IVP STA (12:57)
[2019-03-13 13:36] VITALS: BMI 26.3
[2019-03-13 13:41] LABS: Reticulocyte % 3.5 % (0.5-2.0)
--- NOTE | 2019-03-13 13:44 | P.PN ---
Subjective Progress Note Date: 03/13/19 This is a 48-year-old female patient of Dr. Goldberg and Dr. Massey with past medical history of colon cancer with metastatic disease status post right hemicolectomy and appendectomy. Patient also has history of pulmonary embolism, gastroesophageal reflux disease, remote history of tobacco use and dependence and dermatitis from chemotherapy, chronic back pain. Patient most recently been on chemotherapy with Camptosar and Vectibix. She underwent her first paracentesis on March 06 with 2-1/2 L removed at [facility]. Patient states that her abdomen is smaller than before paracentesis. She also states lower extremity edema is improved. Patient gives history that she is eating very little and having trouble taking pills that causes her vomiting. She denies any sore throat. The patient is vomiting frequently but does feel that she would like to eat. Patient also, complains of generalized weakness and fatigue as well as lightheadedness. Patient was seen at Dr. Massey's office and s ent over to [facility] emergency center for evaluation. Her initial heart rate was 134 and blood pressure 87/61, she was afebrile. EKG was a sinus tachycardia with no acute ST changes. WBC 13.6, hemoglobin 9.4, platelet count 627. Sodium 133, potassium 4.3, chloride 93, CO2 27, BUN 19 creatinine 0.92, blood sugar 181. Patient denies history of diabetes. Lactic acid was 3.3. Phosphorus 4.7, alkaline phosphatase 3.8 and other liver function tests within normal limits, TSH 2.250. Urinalysis dark brown, turbid, leukoesterase large, squamous cell 61. Chest x-ray shows no acute process. Patient admitted to the Medr floor and continued on IV fluids, Rocephin, consult with oncology. Patient is on Zofran for nausea and morphine for pain control. Patient would like diet advanced to regular and agreed on chopped diet. 03/13: The patient continues to have some nausea and eating very little. Oncology has met with the patient with plan for paracentesis. No plan for TPN. Dietitian is recommending low fiber diet which will be changed. Patient has been afebrile, heart rate 117, blood pressure 104/63, pulse ox 97% on room air. White count is normal and a 0.5, hemoglobin 7.8, platelet count 502. Sodium 132, repeat lactic acid 1.3. Marinol has been added by oncology as well as one- time dose of morphine for pain control. All blood cultures status received. U rine culture in progress. Iron studies in process.. Objective - Vital Signs Vital signs: Vital Signs Temp 98 F 03/13/19 04:56 Pulse 114 H 03/13/19 04:56 Resp 16 03/13/19 04:56 BP 110/74 03/13/19 04:56 Pulse Ox 98 03/13/19 04:56 Intake & Output 03/12/19 03/13/19 03/13/19 18:59 06:59 18:59 Intake Total 1000 Output Total 100 Balance 900 Weight 65.317 kg Intake: Intake, IV Titration 1000 Amount Sodium Chloride 0.9% 1, 1000 000 ml @ 100 mls/hr IV . Q10H BRYN Rx#:[id number] Output: Emesis 100 Other: Voiding Method Toilet # Voids 1 - Exam Review of Systems Constitutional: Reports fatigue, Reports lethargy, Reports poor appetite, Reports weakness, Reports weight loss, Denies chills, Denies fever, reports chronic pain Eyes: denies blurred vision, denies pain Ears, nose, mouth and throat: Reports vertigo, Denies dental pain, Denies headache, Denies mouth pain, Denies sore throat Cardiovascular: Reports leg edema, Reports lightheadedness, Denies chest pain, Denies decreased exercise tolerance, Denies dyspnea on exertion, Denies edema, Denies shortness of breath, Denies syncope Respiratory: Denies cough, Denies cough with sputum, Denies dyspnea, Denies excessive sputum, Denies hemoptysis, Denies home oxygen, Denies wheezing Gastrointestinal: Reports bloating, Reports nausea, denies vomiting, Denies abdominal pain, Denies diarrhea, Denies hematemesis, Denies hematochezia, Denies jaundice Genitourinary: Denies dysuria, Denies hematuria, Denies urgency, Denies urinary frequency Musculoskeletal: Reports muscle weakness, Denies frequent falls, Denies gait dy sfunction, Denies myalgias Integumentary: Reports lesions, Denies pruritus, Denies rash, Denies wounds Neurological: Denies aphasia, Denies change in mentation, Denies change in speech, Denies confusion, Denies head injury, Denies headaches, Denies numbness, Denies seizures, Denies weakness Psychiatric: Denies anxiety, Denies depression Endocrine: Denies fatigue, Denies weight change Gen: This is a thin 48-year-old female. She is resting in bed and is at bedside. HEENT: Head is atraumatic, normocephalic. Pupils equal, round. Sclerae is anicteric. Oral mucous members slightly dry. NECK: Supple. No JVD. No lymphadenopathy. No thyromegaly. LUNGS: Clear to auscultation. No wheezes or rhonchi. No intercostal retractions. HEART: Regular rate and rhythm. No murmur. ABDOMEN: Soft. Abdominal distention. Positive ascites. Bowel sounds are present. No masses. Minimal generalized tenderness. EXTREMITIES: Trace bilateral pedal edema slightly increased on the left. No c ирина nor thigh tenderness. NEUROLOGICAL: Patient is awake, alert and oriented x3. Cranial nerves 2 through 12 are grossly intact. - Labs CBC & Chem 7: 03/13/19 09:05 03/13/19 09:05 Labs: Abnormal Lab Results - Last 24 Hours (Table) 03/12/19 03/12/19 03/12/19 Range/Units 11:14 11:14 11:14 WBC 13.6 H (3.8-10.6) k/uL Hgb 9.4 L (11.4-16.0) gm/dL Hct 32.5 L (34.0-46.0) % MCV 77.5 L (80.0-100.0) fL MCH 22.3 L (25.0-35.0) pg MCHC 28.8 L (31.0-37.0) g/dL RDW 18.9 H (11.5-15.5) % Plt Count 627 H (150-450) k/uL Neutrophils # 10.7 H (1.3-7.7) k/uL Monocytes # 1.2 H (0-1.0) k/uL PT (9.0-12.0) sec INR (<1.2) APTT (22.0-30.0) sec Sodium 133 L (137-145) mmol/L Chloride 93 L (98-107) mmol/L BUN 19 H (7-17) mg/dL Glucose 181 H (74-99) mg/dL Plasma Lactic Acid Johnny 3.3 H* (0.7-2.0) mmol/L Phosphorus 4.7 H (2.5-4.5) mg/dL Alkaline Phosphatase 318 H (38-126) U/L Total Protein 6.2 L (6.3-8.2) g/dL Albumin 3.1 L (3.5-5.0) g/dL Urine Appearance (Clear) Ur Specific [place] (1.001-1.035) Urine Protein (Negative) Urine Glucose (UA) (Negative) Urine Blood (Negative) Urine Bilirubin (Negative) Ur Leukocyte Esterase (Negative) Urine RBC (0-5) /hpf Urine WBC (0-5) /hpf Ur Squamous Epith Cells (0-4) /hpf Urine Bacteria (None) /hpf Hyaline Casts (0-2) /lpf Urine Mucus (None) /hpf 03/12/19 03/12/19 Range/Units 11:14 12:13 WBC (3.8-10.6) k/uL Hgb (11.4-16.0) gm/dL Hct (34.0-46.0) % MCV (80.0-100.0) fL MCH (25.0-35.0) pg MCHC (31.0-37.0) g/dL RDW (11.5-15.5) % Plt Count (150-450) k/uL Neutrophils # (1.3-7.7) k/uL Monocytes # (0-1.0) k/uL PT 15.8 H (9.0-12.0) sec INR 1.6 H (<1.2) APTT 33.0 H (22.0-30.0) sec Sodium (137-145) mmol/L Chloride (98-107) mmol/L BUN (7-17) mg/dL Glucose (74-99) mg/dL Plasma Lactic Acid Johnny (0.7-2.0) mmol/L Phosphorus (2.5-4.5) mg/dL Alkaline Phosphatase (38-126) U/L Total Protein (6.3-8.2) g/dL Albumin (3.5-5.0) g/dL Urine Appearance Turbid H (Clear) Ur Specific [place] 1.038 H (1.001-1.035) Urine Protein 2+ H (Negative) Urine Glucose (UA) Trace H (Negative) Urine Blood Trace H (Negative) Urine Bilirubin 1+ H (Negative) Ur Leukocyte Esterase Large H (Negative) Urine RBC 26 H (0-5) /hpf Urine WBC 81 H (0-5) /hpf Ur Squamous Epith Cells 61 H (0-4) /hpf Urine Bacteria Rare H (None) /hpf Hyaline Casts 32 H (0-2) /lpf Urine Mucus Many H (None) /hpf Microbiology - Last 24 Hours (Table) 03/12/19 12:13 Urine Culture - Preliminary Urine,Voided Assessment and Plan Plan: 1. Intractable nausea and vomiting secondary to colon cancer. Patient to continue IV fluids, diet advanced to low fiber, continue Zofran for nausea and Dilaudid for pain control. Consult with Dr. Massey. 2. Hypotension and lightheadedness secondary to hypovolemia from nausea and vomiting. 3. Pulmonary embolism. Continue Xarelto. 4. History of ascending colon cancer status post right colectomy with metastatic disease. Patient is currently under care of Dr. Massey and chemotherapy with Camptosar and Vectibix. 5. Ascites status post paracentesis March 06 with removal of 20 half liters. Paracentesis by interventional radiology today 6. Possible urinary tract infection and immunocompromise host, patient is asymptomatic and urinalysis has squamous cells 61 making this unlikely. Patient will continue on ceftriaxone. 7. Chemo-induced dermatitis. Patient is normally on doxycycline which will be placed on hold while on ceftriaxone. 8. Gastroesophageal reflux disease. Continue Protonix. 9. Chronic pain syndrome. Continue tramadol, [place]. 10. Generalized anxiety disorder. Continue Ativan 0.5 mg 3 times daily as needed and amitriptyline 25 mg at bedtime. 11. Peripheral neuropathy. Continue gabapentin 300 mg twice daily and 600 mg at bedtime. 12. Severe protein calorie malnutrition secondary to cancer. Protein supplementation. 13. DVT prophylaxis. Xarelto. 14. Anemia most likely secondary to cancer. Iron studies in process. Discharge plan: Return home Impression and plan of care have been directed as dictated by the signing physician. Lizy Sin nurse practitioner acting as scribe for signing physician.
--- NOTE | 2019-03-13 14:23 | US ---
EXAMINATION TYPE: US abdomen limited DATE OF EXAM: 03/13/2019 COMPARISON: NONE CLINICAL HISTORY: assess for ascites. Ascites check, exam done portable. Loculated pockets of abdominal ascites seen within all 4 quadrants IMPRESSION: 1. Loculated ascites. Appearance is similar to 02/13/2019
[2019-03-13] MEDS: SALT AND SODA MOUTHWASH 1,000 ML PO SCH ×4 (16:32→23:48)
[2019-03-13] MEDS: DRONABINOL 2.5 MG CAP PO SCH (16:38)
[2019-03-13] MEDS: MAG HYDROX/AL HYDROX/SIMETH 30 ML, LIDOCAINE VISCOUS 30 ML, diphenhydrAMINE ELIXIR 75 M... PO SCH ×12 (17:02→21:38)
[2019-03-13] MEDS: MORPHINE SULFATE 4 MG/ML SYRINGE IV PRN ×2 (17:39→21:36)
[2019-03-13] MEDS: LORazepam 0.5 MG TAB PO PRN (20:06)
[2019-03-13] MEDS: AMITRIPTYLINE HCL 25 MG TAB PO SCH (20:07)
--- NOTE | 2019-03-13 20:23 | P.CONS ---
History of Present Illness - Reason for Consult Consult date: 03/13/19 Matastatic colon adenocarcinoma Requesting physician: Charlie Andino - Chief Complaint Tachycardia, dehydration, UTI - History of Present Illness Ms. Ahmadi is a very pleasant female pt of Dr. Massey with a strong family history of colon cancer on her paternal side. She had regular colonoscopies since her 30s, with removal of polyps. She came into the emergency room on 04/28/18 with complaints of lower abdominal pain, nausea x 1 week or so prior, CT AP showed abnormal soft tissue with local inflammation in the area of the cecum and appendix. She had surgery on 04/29/18, 6.5 cm grade 2- 3 adenocarcinoma with mucinous and signet ring features in the cecum, perit omalley/mesenteric margins were involved by invasive carcinoma, 5/15 lymph nodes were involved, incidentally a synchronous primary adenocarcinoma was seen in the appendix, G2, with tumor invading the submucosa. Staging PET 05/18/18 showed no evidence of metastatic disease. She was KRAS wild type and MSI high. She had 12 cycles of FOLFOX. In f/u she had evidence of recurrence so, she had a biopsy of peritoneal implants and adnexal mass on 11/26/18, peritoneal biopsy was positive for colon adenocarc ionoma, adnexal biopsy was non diagnostic. She started FOLFIRI + Vectibix on 12/09/18, and is s/p 6 cycles, last one on 03/03. She was admitted to [facility] from 12/17/18 to 12/23/18 for a massive PE, and LLE DVT, she continues on xarelto. MRI brain on 12/26/18 was negative for mets. She has been having progressive abdominal distention since mid 01/31, referred to [facility] for ultrasound-guided paracentesis, but reported insufficient fluid. She had a 2.5L paracentesis at [facility] on 03/06/19. PET scan after C did not show any new sites of disease. She was seen in the office yesterday for treatment follow-up, she was noted to be tachycardic, complaining of oral irritation, anorexia, vomiting without n ausea, abdominal distention that was progressive, causing difficulty in breathing when moving, low back pain radiating to the anterior portion of her abdomen, denied dysuria, hematuria, hematochezia or melena, swelling in the legs, bleeding, fever, chills or cough. On admit she was tachycardic, labs showing Elevated lactic acid, urinary analysis suspicious, cultures pending Review of Systems 14 point review systems is negative except as stated in HPI Past Medical History Past Medical History: Cancer, Skin Disorder Additional Past Medical History / Comment(s): colon CA with mets to pelvis and periteum with secondary CA on appendix, colon polyps, roseacea History of Any Multi-Drug Resistant Organisms: None Reported Past Surgical History: No Surgical Hx Reported, Appendectomy Additional Past Surgical History / Comment(s): right colectomy Past Anesthesia/Blood Transfusion Reactions: Postoperative Nausea & Vomiting (PONV) Past Psychological History: No Psychological Hx Reported Smoking Status: Former smoker Past Alcohol Use History: Daily Additional Past Alcohol Use History / Comment(s): Patient was smoker up to 3 packs per week for 30 years and quit in April 2018. She has no alcohol intake at this time but in the past drank a few glasses of red wine per day. She lives at home with her . Past Drug Use History: None Reported - Past Family History Father Family Medical History: Congestive Heart Failure (CHF), CVA/TIA, Diabetes Mellitus, Deep Vein Thrombosis (DVT), Myocardial Infarction (NH) Additional Family Medical History / Comment(s): Father at age 72 with history of colon cancer, bladder ca, skin ca, prostate ca, BLOOD CLOT IN ARM, stroke, NH at age 60. Mother Family Medical History: Cancer Additional Family Medical History / Comment(s): Mother is age 75 with non- Hodgkin's lymphoma stage IV. Brother(s) Additional Family Medical History / Comment(s): Patient has 2 brothers with no major medical problems. Patient has 2 sisters one has endometriosis and 1 hypertension. Patient has 4 children with no major medical problems. Medications and Allergies Home Medications Medication Instructions Recorded Confirmed Type Famotidine [Pepcid] 20 mg PO HS 08/05/18 03/12/19 History Ferrous Sulfate [Iron] 325 mg PO DAILY 08/05/18 03/12/19 History Ondansetron [Zofran] 8 mg PO Q8HR PRN 08/05/18 03/12/19 History Prochlorperazine [Compazine] 10 mg PO Q6H PRN 08/05/18 03/12/19 History Gabapentin [Neurontin] 300 mg PO BID@0800,1200 09/16/18 03/12/19 History LORazepam [Ativan] 0.5 mg PO TID PRN 12/09/18 03/12/19 History traMADol HCL [Ultram] 50 mg PO Q6HR PRN 12/09/18 03/12/19 History Amitriptyline HCl [Elavil] 25 mg PO HS 01/20/19 03/12/19 History HYDROcodone/APAP 5-325MG [[place] 1 tab PO Q8H PRN 01/20/19 03/12/19 History 5-325] Doxycycline [Vibramycin] 100 mg PO Q12H 02/04/19 03/12/19 History Gabapentin [Neurontin] 600 mg PO HS 02/04/19 03/12/19 History Rivaroxaban [Xarelto] 20 mg PO DAILY 02/04/19 03/12/19 History Allergies Allergy/AdvReac Type Severity Reaction Status Date / Time No Known Allergies Allergy Verified 03/12/19 11:17 Physical Exam Vitals: Vital Signs Temp Pulse Resp BP Pulse Ox 03/13/19 16:00 117 H 17 03/13/19 12:28 98.2 F 117 H 17 104/63 97 03/13/19 08:00 117 H 16 03/13/19 04:56 98 F 114 H 16 110/74 98 03/12/19 21:18 98.3 F 117 H 16 102/68 94 L Intake and Output 03/13/19 03/13/19 03/13/19 06:59 14:59 22:59 Intake Total 800 770 480 Balance 800 770 480 Intake: Intake, IV Titration 800 50 Amount Sodium Chloride 0.9% 1, 800 000 ml @ 100 mls/hr IV . Q10H BRYN Rx#:[id number] cefTRIAXone 1 gm In 50 Sodium Chloride 0.9% 50 ml @ 100 mls/hr IVPB Q24H BRYN Rx#:[id number] Oral 720 480 Other: Voiding Method Toilet Toilet # Voids 1 3 3 Weight 65.317 kg - Constitutional General appearance: cooperative, mild distress, thin - EENT Eyes: anicteric sclerae, EOMI ENT: hearing grossly normal, normal oropharynx - Neck Neck: no lymphadenopathy - Respiratory Respiratory: bilateral: CTA - Cardiovascular tachycardia, no irregular beats at 1 minute auscultation Heart sounds: normal: S1, S2 Abnormal Heart Sounds: no systolic murmur, no diastolic murmur, no rub, no S3 Gallop, no S4 Gallop, no click, no other leg Peripheral Edema: bilateral: None - Gastrointestinal General gastrointestinal: no absent bowel sounds, decreased bowel sounds, distended, no hepatomegaly, no hyperactive bowel sounds, no normal bowel sounds, no organomegaly, no rigid, no scaphoid, soft, no splenomegaly, tenderness, no umbilical hernia, no ventral hernia - Integumentary Thickened epidermis, bronzing of the skin and scattered rash secondary to medications - Neurologic Neurologic: CNII-XII intact - Musculoskeletal Musculoskeletal: generalized weakness - Psychiatric Psychiatric: A&O x's 3, appropriate affect, intact judgment & insight Results CBC & Chem 7: 03/13/19 09:05 03/13/19 09:05 Labs: Abnormal Lab Results - Last 24 Hours (Table) 03/13/19 03/13/19 03/13/19 Range/Units 09:05 09:05 09:05 RBC 3.41 L (3.80-5.40) m/uL Hgb 7.8 L D (11.4-16.0) gm/dL Hct 26.8 L (34.0-46.0) % MCV 78.6 L (80.0-100.0) fL MCH 22.9 L (25.0-35.0) pg MCHC 29.1 L (31.0-37.0) g/dL RDW 18.2 H (11.5-15.5) % Plt Count 502 H (150-450) k/uL Retic Count 3.5 H (0.5-2.0) % Sodium 132 L (137-145) mmol/L Glucose 115 H (74-99) mg/dL Microbiology - Last 24 Hours (Table) 03/12/19 12:13 Urine Culture - Final Urine,Voided 03/12/19 14:44 Blood Culture - Preliminary Blood No Growth after 24 hours US - abdomen: report reviewed Assessment and Plan (1) Anorexia Narrative/Plan: Likely inability to eat in part related to ascites. Patient had 2.5 L removed last week at [facility]. Ultrasound of the abdomen is ordered for evaluation and paracentesis. Medications to control nausea ordered, patient has been started on Marinol. Current Visit: Yes Status: Acute Priority: High Code(s): R63.0 - ANOREXIA SNOMED Code(s): 76243759 (2) Colon cancer Narrative/Plan: Patient is currently receiving chemotherapy with her last dose being cycle 6 of FOLFIRI and vectibix on 03/03. Dr. Massey personally reviewed the patient's PET scan with radiologist, no evidence of disease progression. Continuation of palliative treatment on discharge will be discussed with pt and family once she is feeling better from her current acute situation Current Visit: Yes Status: Chronic Priority: High Code(s): C18.9 - MALIGNANT NEOPLASM OF COLON, UNSPECIFIED SNOMED Code(s): 972673398 (3) Dehydration Narrative/Plan: IV fluids ordered, gentle hydration due to ascites. Oral protein intake encoura ged. Current Visit: Yes Status: Acute Priority: High Code(s): E86.0 - DEHYDRATION SNOMED Code(s): 08291671 (4) UTI (urinary tract infection) Narrative/Plan: Attending addressed Current Visit: Yes Status: Acute Priority: High Code(s): N39.0 - URINARY TRACT INFECTION, SITE NOT SPECIFIED SNOMED Code(s): 45326326 (5) Abdominal pain Narrative/Plan: Pain medications ordered, will evaluate effectiveness and titrate for comfort Current Visit: Yes Status: Acute Priority: High Code(s): R10.9 - UNSPECIFIED ABDOMINAL PAIN SNOMED Code(s): 88797559 (6) Mucositis (ulcerative) due to antineoplastic therapy Narrative/Plan: Mild/mod, supportive care medications ordered Current Visit: Yes Status: Acute Priority: High Code(s): K12.31 - ORAL MUCOSITIS (ULCERATIVE) DUE TO ANTINEOPLASTIC THERAPY SNOMED Code(s): 785912642
[2019-03-13 23:19] LABS: Iron Saturation 4.83 (12.00-45.00)
[2019-03-14] MEDS: traMADol 50 MG TAB PO PRN ×3 (00:13→18:16)
[2019-03-14] MEDS: MORPHINE SULFATE 4 MG/ML SYRINGE IV PRN ×3 (01:37→15:57)
[2019-03-14] MEDS: SODIUM CHLORIDE 0.9% 1,000 ML IV SCH ×3 (04:43→21:58)
[2019-03-14] MEDS: HYDROcodone/APAP 5-325MG 1 EACH TAB PO PRN ×2 (06:05→21:55)
[2019-03-14] MEDS: SALT AND SODA MOUTHWASH 1,000 ML PO SCH ×5 (06:05→23:06)
[2019-03-14] MEDS: DRONABINOL 2.5 MG CAP PO SCH ×2 (08:35→18:17)
[2019-03-14] MEDS: GABAPENTIN 300 MG CAP PO SCH ×3 (08:35→21:51)
[2019-03-14] MEDS: FERROUS SULFATE 325 MG TAB PO SCH (08:35)
[2019-03-14] MEDS: PANTOPRAZOLE 40 MG/10 ML VIAL IV SCH (08:36)
[2019-03-14] MEDS: MAG HYDROX/AL HYDROX/SIMETH 30 ML, LIDOCAINE VISCOUS 30 ML, diphenhydrAMINE ELIXIR 75 M... PO SCH ×12 (08:47→21:52)
--- NOTE | 2019-03-14 13:36 | P.PN ---
Subjective Progress Note Date: 03/14/19 This is a 48-year-old female patient of Dr. Goldberg and Dr. Massey with past medical history of colon cancer with metastatic disease status post right hemicolectomy and appendectomy. Patient also has history of pulmonary embolism, gastroesophageal reflux disease, remote history of tobacco use and dependence and dermatitis from chemotherapy, chronic back pain. Patient most recently been on chemotherapy with Camptosar and Vectibix. She underwent her first paracentesis on March 06 with 2-1/2 L removed at [facility]. Patient states that her abdomen is smaller than before paracentesis. She also states lower extremity edema is improved. Patient gives history that she is eating very little and having trouble taking pills that causes her vomiting. She denies any sore throat. The patient is vomiting frequently but does feel that she would like to eat. Patient also, complains of generalized weakness and fatigue as well as lightheadedness. Patient was seen at Dr. Massey's office and s ent over to [facility] emergency center for evaluation. Her initial heart rate was 134 and blood pressure 87/61, she was afebrile. EKG was a sinus tachycardia with no acute ST changes. WBC 13.6, hemoglobin 9.4, platelet count 627. Sodium 133, potassium 4.3, chloride 93, CO2 27, BUN 19 creatinine 0.92, blood sugar 181. Patient denies history of diabetes. Lactic acid was 3.3. Phosphorus 4.7, alkaline phosphatase 3.8 and other liver function tests within normal limits, TSH 2.250. Urinalysis dark brown, turbid, leukoesterase large, squamous cell 61. Chest x-ray shows no acute process. Patient admitted to the Medr floor and continued on IV fluids, Rocephin, consult with oncology. Patient is on Zofran for nausea and morphine for pain control. Patient would like diet advanced to regular and agreed on chopped diet. 03/13: The patient continues to have some nausea and eating very little. Oncology has met with the patient with plan for paracentesis. No plan for TPN. Dietitian is recommending low fiber diet which will be changed. Patient has been afebrile, heart rate 117, blood pressure 104/63, pulse ox 97% on room air. White count is normal and a 0.5, hemoglobin 7.8, platelet count 502. Sodium 132, repeat lactic acid 1.3. Marinol has been added by oncology as well as one- time dose of morphine for pain control. All blood cultures status received. U magali culture in progress. Iron studies in process.. 03/14: Abdominal ultrasound shows loculated ascites. There is currently no plan for paracentesis. Patient is currently sweaty and clammy. She has no appetite and not eating. Patient was transitioned to a no code last evening. Heart rate is in the 120s, blood pressure 99/73, pulse ox 96% on room air, patient has been afebrile. Awaiting further Objective - Vital Signs Vital signs: Vital Signs Temp 97.9 F 03/14/19 05:00 Pulse 124 H 03/14/19 05:00 Resp 20 03/14/19 05:00 BP 99/73 03/14/19 05:00 Pulse Ox 96 03/14/19 05:00 Intake & Output 03/13/19 03/14/19 03/14/19 18:59 06:59 18:59 Intake Total 1130 710 Balance 1130 710 Weight 65.317 kg Intake: Intake, IV Titration 50 Amount cefTRIAXone 1 gm In 50 Sodium Chloride 0.9% 50 ml @ 100 mls/hr IVPB Q24H [facility] Rx#:[id number] Oral 1080 710 Other: Voiding Method Toilet Toilet # Voids 3 2 - Exam Review of Systems Constitutional: Reports fatigue, Reports lethargy, Reports poor appetite, Reports weakness, Reports weight loss, Denies chills, Denies fever, reports chronic pain, reports sweats Eyes: denies blurred vision, denies pain Ears, nose, mouth and throat: Reports vertigo, Denies dental pain, Denies headache, Denies mouth pain, Denies sore throat Cardiovascular: Reports leg edema, Reports lightheadedness, Denies chest pain, Denies decreased exercise tolerance, Denies dyspnea on exertion, Denies edema, Denies shortness of breath, Denies syncope Respiratory: Denies cough, Denies cough with sputum, Denies dyspnea, Denies excessive sputum, Denies hemoptysis, Denies home oxygen, Denies wheezing Gastrointestinal: Reports bloating, Reports nausea, denies vomiting, Denies abdominal pain, Denies diarrhea, Denies hematemesis, Denies hematochezia, Denies jaundice Genitourinary: Denies dysuria, Denies hematuria, Denies urgency, Denies urinary frequency Musculoskeletal: Reports muscle weakness, Denies frequent falls, Denies gait dysfunction, Denies myalgias Integumentary: Reports lesions, Denies pruritus, Denies rash, Denies wounds Neurological: Denies aphasia, Denies change in mentation, Denies change in sp eech, Denies confusion, Denies head injury, Denies headaches, Denies numbness, Denies seizures, Denies weakness Psychiatric: Denies anxiety, Denies depression Endocrine: Reports fatigue, reports weight change Gen: This is a thin 48-year-old female. She is resting in bed and is at bedside. The skin is cool and clammy HEENT: Head is atraumatic, normocephalic. Pupils equal, round. Sclerae is anicteric. Oral mucous members slightly dry. NECK: Supple. No JVD. No lymphadenopathy. No thyromegaly. LUNGS: Clear to auscultation. No wheezes or rhonchi. No intercostal retractions. HEART: Regular rate and rhythm. No murmur. ABDOMEN: Soft. Abdominal distention. Positive ascites. Bowel sounds are present. No masses. Minimal generalized tenderness. EXTREMITIES: Trace bilateral pedal edema slightly increased on the left. No calf nor thigh tenderness. NEUROLOGICAL: Patient is awake, alert and oriented x3. Cranial nerves 2 through 12 are grossly intact. - Labs CBC & Chem 7: 03/13/19 09:05 03/13/19 09:05 Labs: Abnormal Lab Results - Last 24 Hours (Table) 03/13/19 03/13/19 03/13/19 Range/Units 09:05 09:05 09:05 RBC 3.41 L (3.80-5.40) m/uL Hgb 7.8 L D (11.4-16.0) gm/dL Hct 26.8 L (34.0-46.0) % MCV 78.6 L (80.0-100.0) fL MCH 22.9 L (25.0-35.0) pg MCHC 29.1 L (31.0-37.0) g/dL RDW 18.2 H (11.5-15.5) % Plt Count 502 H (150-450) k/uL Retic Count 3.5 H (0.5-2.0) % Iron 13 L (50-170) ug/dL Iron Saturation 4.83 L (12.00-45.00) Vitamin B12 958.0 H (200.0-944.0) pg/mL Microbiology - Last 24 Hours (Table) 03/12/19 12:13 Urine Culture - Final Urine,Voided 03/12/19 14:44 Blood Culture - Preliminary Blood No Growth after 24 hours Assessment and Plan Plan: 1. Intractable nausea and vomiting secondary to colon cancer, ascites. Patient to continue IV fluids, diet advanced to low fiber, continue Zofran for nausea and Dilaudid for pain control. Consult with Dr. Massey. 2. Hypotension and lightheadedness secondary to hypovolemia from nausea and vomiting. 3. Pulmonary embolism. Continue Xarelto. 4. History of ascending colon cancer status post right colectomy with metastatic disease. Patient is currently under care of Dr. Massey and chemotherapy with Camptosar and Vectibix. 5. Ascites status post paracentesis March 06 with removal of 20 half liters. Paracentesis by interventional radiology is not planned as ultrasound sound showed loculated fluid. 6. Possible urinary tract infection ruled out. Rocephin stopped. Doxycycline will be resumed. 7. Chemo-induced dermatitis. Patient is normally on doxycycline which will be placed on hold while on ceftriaxone. 8. Gastroesophageal reflux disease. Continue Protonix. 9. Chronic pain syndrome. Continue tramadol, [place]. 10. Generalized anxiety disorder. Continue Ativan 0.5 mg 3 times daily as needed and amitriptyline 25 mg at bedtime. 11. Peripheral neuropathy. Continue gabapentin 300 mg twice daily and 600 mg at bedtime. 12. Severe protein calorie malnutrition secondary to cancer. Protein supplementation. 13. DVT prophylaxis. Xarelto. 14. Anemia most likely secondary to cancer. Iron studies in process. Discharge plan: Return home Impression and plan of care have been directed as dictated by the signing physician. Lizy Sin nurse practitioner acting as scribe for signing physician.
[2019-03-14] MEDS: RIVAROXABAN 20 MG TAB PO SCH (15:54)
[2019-03-14 15:59] LABS: Anisocytosis Slight; Basophils # (A) 0.1 k/uL (0-0.2); Basophils % (A) 0 %; Eosinophils # (A) 0.2 k/uL (0-0.7); Eosinophils % (A) 2 %; HCT 28.4 % (34.0-46.0); HGB 8.1 gm/dL (11.4-16.0); Hypochromasia Marked; Lymphocytes # (A) 1.2 k/uL (1.0-4.8); Lymphocytes % (A) 11 %; MCH 22.1 pg (25.0-35.0); MCHC 28.3 g/dL (31.0-37.0); MCV 78.1 fL (80.0-100.0); Mean Platelet Volume 7.2; Microcytosis Slight; Monocytes # (A) 1.1 k/uL (0-1.0); Monocytes % (A) 10 %; Neutrophils # (A) 8.6 k/uL (1.3-7.7); Neutrophils % (A) 75 %; Platelet Count 538 k/uL (150-450); RBC 3.64 m/uL (3.80-5.40); RDW 18.4 % (11.5-15.5); WBC 11.5 k/uL (3.8-10.6)
[2019-03-14 16:12] LABS: ALT 19 U/L (9-52); AST 25 U/L (14-36); Albumin 2.6 g/dL (3.5-5.0); Alkaline Phosphatase 258 U/L (38-126); Anion Gap 6 mmol/L; Blood Urea Nitrogen 18 mg/dL (7-17); Calcium 8.6 mg/dL (8.4-10.2); Carbon Dioxide 28 mmol/L (22-30); Chloride 97 mmol/L (98-107); Glucose 142 mg/dL (74-99); Potassium 4.5 mmol/L (3.5-5.1); Sodium 131 mmol/L (137-145); Total Bilirubin 0.4 mg/dL (0.2-1.3); Total Protein 5.3 g/dL (6.3-8.2)
--- NOTE | 2019-03-14 16:15 | P.PN ---
Subjective Progress Note Date: 03/14/19 Principal diagnosis: Metastatic Mucinous Colon Cancer Patient still appears uncomfortable, mild distress, Hypotensive, Tachycardic. She is unable to consume enough PO intake. Abdominal distention has worsened, per IR they feel fluid is loculated. She did recently undergo paracentesis at [facility], they removed 2500cc on March 06. I spoke to Dr. Green they will re-assess abdominal ascites, she will be headed down today, Edinsonrelto has been on hold Patient is not improving and is not comfortable. Objective - Vital Signs Vital signs: Vital Signs Temp 98.4 F 03/14/19 14:39 Pulse 128 H 03/14/19 14:39 Resp 16 03/14/19 14:39 BP 109/74 03/14/19 14:39 Pulse Ox 95 03/14/19 14:39 Intake & Output 03/13/19 03/14/19 03/14/19 18:59 06:59 18:59 Intake Total 1130 710 Balance 1130 710 Weight 65.317 kg Intake: Intake, IV Titration 50 Amount cefTRIAXone 1 gm In 50 Sodium Chloride 0.9% 50 ml @ 100 mls/hr IVPB Q24H [facility] Rx#:[id number] Oral 1080 710 Other: Voiding Method Toilet Toilet # Voids 3 2 2 - Exam Gen: Alert, Mild distress Head: NCNT Neck: Supple Heart: Tachy, Reg Lungs: Diminished bilateral Bases, increased effort noted Abdomen: Firm Distended, Tender Extremities BLE Edema 3-4+ Neuro: Non-Focal no sensory or motor deficits. - Labs CBC & Chem 7: 03/14/19 15:44 03/13/19 09:05 Labs: Abnormal Lab Results - Last 24 Hours (Table) 03/13/19 03/13/19 Range/Units 09:05 09:05 Iron 13 L (50-170) ug/dL Iron Saturation 4.83 L (12.00-45.00) Vitamin B12 958.0 H (200.0-944.0) pg/mL RBC Folate 1,723 H (280 - 791) ng/mL Microbiology - Last 24 Hours (Table) 03/12/19 12:13 Urine Culture - Final Urine,Voided 03/12/19 14:44 Blood Culture - Preliminary Blood No Growth after 24 hours Assessment and Plan Plan: Assessment and Recommendations: Metastatic mucinous colon cancer - Status Post Cycle 5 FOLFIRI with Vectibix - On hold while inpatient Recurrent Abdominal Ascites: Distention - Recent Paracentesis with 2500cc removed on 03/06/19 path negative for malignant cells - Re-assessment today for paracentesis; spoke with IR. Abdominal Distention: Worsening: - Secondary to Ascites as well as, abdominal masses noted on PET, omental caking and deposits. Hypotension/Tachycardia: - Secondary to fluid shift, malnutrition, intravascular dehydration
--- NOTE | 2019-03-14 17:38 | P.PCN ---
Date of Procedure: 03/14/19 Preoperative Diagnosis: ascites Postoperative Diagnosis: ascites Procedure(s) Performed: paracentesis Anesthesia: local Estimated Blood Loss (ml): 10 Pathology: other (specimen to path) Condition: stable Operative Findings: 5 fr and 6 fr catheter, u/s guide, 1.5 cc sanguinous material, 60cc to path
[2019-03-14] MEDS ORDERED: SODIUM CHLORIDE 0.9% 500 ML 500 ML IV ONE (19:57)
[2019-03-14 20:16] LABS: Appearance,BF Bloody; Color,BF Red; Nucleated Cells, Body Fluid 500 /uL; RBC, Body Fluid 422300 /uL
[2019-03-14 20:18] LABS: Mononuclear WBC,Body Fluid 48 %; Polynuclear WBC,Body Fluid 52 %; Total Cells Counted,Body Fluid 100
[2019-03-14] MEDS: AMITRIPTYLINE HCL 25 MG TAB PO SCH (21:51)
[2019-03-14] MEDS: DOXYCYCLINE 100 MG CAP PO SCH (21:51)
[2019-03-14] MEDS: LORazepam 0.5 MG TAB PO PRN (21:54)
[2019-03-14 23:58] LABS: Total Protein, Body Fluid 3210 mg/dL
[2019-03-15] MEDS: SALT AND SODA MOUTHWASH 1,000 ML PO SCH ×4 (05:32→21:32)
[2019-03-15 07:23] LABS: Anisocytosis Slight; Basophils % (A) 0 %; Eosinophils # (A) 0.1 k/uL (0-0.7); Eosinophils % (A) 0 %; HCT 25.2 % (34.0-46.0); HGB 7.2 gm/dL (11.4-16.0); Hypochromasia Marked; Lymphocytes # (A) 1.3 k/uL (1.0-4.8); Lymphocytes % (A) 13 %; MCHC 28.6 g/dL (31.0-37.0); Mean Platelet Volume 6.2; Microcytosis Slight; Monocytes # (A) 1.1 k/uL (0-1.0); Monocytes % (A) 11 %; Neutrophils # (A) 7.5 k/uL (1.3-7.7); Neutrophils % (A) 73 %; Platelet Count 512 k/uL (150-450); RBC 3.27 m/uL (3.80-5.40); RDW 19.4 % (11.5-15.5); WBC 10.2 k/uL (3.8-10.6)
[2019-03-15 07:48] LABS: ALT 24 U/L (9-52); AST 27 U/L (14-36); Albumin 2.3 g/dL (3.5-5.0); Alkaline Phosphatase 248 U/L (38-126); Anion Gap 7 mmol/L; Blood Urea Nitrogen 17 mg/dL (7-17); Calcium 8.3 mg/dL (8.4-10.2); Carbon Dioxide 27 mmol/L (22-30); Chloride 99 mmol/L (98-107); Glucose 124 mg/dL (74-99); Potassium 4.4 mmol/L (3.5-5.1); Sodium 133 mmol/L (137-145); Total Bilirubin 0.5 mg/dL (0.2-1.3); Total Protein 4.9 g/dL (6.3-8.2)
[2019-03-15] MEDS: PANTOPRAZOLE 40 MG/10 ML VIAL IV SCH (08:25)
[2019-03-15] MEDS: DOXYCYCLINE 100 MG CAP PO SCH ×2 (08:25→21:33)
[2019-03-15] MEDS: FERROUS SULFATE 325 MG TAB PO SCH (08:25)
[2019-03-15] MEDS: RIVAROXABAN 20 MG TAB PO SCH (08:25)
[2019-03-15] MEDS: DRONABINOL 2.5 MG CAP PO SCH (08:25)
[2019-03-15] MEDS: GABAPENTIN 300 MG CAP PO SCH (08:25)
[2019-03-15] MEDS: POLYETHYLENE GLYCOL 3350 17 GM POWD.PACK PO SCH (08:25)
[2019-03-15] MEDS: MAG HYDROX/AL HYDROX/SIMETH 30 ML, LIDOCAINE VISCOUS 30 ML, diphenhydrAMINE ELIXIR 75 M... PO SCH ×12 (08:26→21:34)
[2019-03-15] MEDS: SODIUM CHLORIDE 0.9% 1,000 ML IV SCH (09:00)
[2019-03-15] MEDS ORDERED: RIVAROXABAN 20 MG TAB PO SCH (09:00)
[2019-03-15] MEDS: LIDOCAINE 5% PATCH TOPICAL SCH (12:50)
--- NOTE | 2019-03-15 12:56 | P.PN ---
Subjective Progress Note Date: 03/15/19 This is a 48-year-old female patient of Dr. Goldberg and Dr. Massey with past medical history of colon cancer with metastatic disease status post right hemicolectomy and appendectomy. Patient also has history of pulmonary embolism, gastroesophageal reflux disease, remote history of tobacco use and dependence and dermatitis from chemotherapy, chronic back pain. Patient most recently been on chemotherapy with Camptosar and Vectibix. She underwent her first paracentesis on March 06 with 2-1/2 L removed at [facility]. Patient states that her abdomen is smaller than before paracentesis. She also states lower extremity edema is improved. Patient gives history that she is eating very little and having trouble taking pills that causes her vomiting. She denies any sore throat. The patient is vomiting frequently but does feel that she would like to eat. Patient also, complains of generalized weakness and fatigue as well as lightheadedness. Patient was seen at Dr. Massey's office and s ent over to [facility] emergency center for evaluation. Her initial heart rate was 134 and blood pressure 87/61, she was afebrile. EKG was a sinus tachycardia with no acute ST changes. WBC 13.6, hemoglobin 9.4, platelet count 627. Sodium 133, potassium 4.3, chloride 93, CO2 27, BUN 19 creatinine 0.92, blood sugar 181. Patient denies history of diabetes. Lactic acid was 3.3. Phosphorus 4.7, alkaline phosphatase 3.8 and other liver function tests within normal limits, TSH 2.250. Urinalysis dark brown, turbid, leukoesterase large, squamous cell 61. Chest x-ray shows no acute process. Patient admitted to the Medr floor and continued on IV fluids, Rocephin, consult with oncology. Patient is on Zofran for nausea and morphine for pain control. Patient would like diet advanced to regular and agreed on chopped diet. 03/13: The patient continues to have some nausea and eating very little. Oncology has met with the patient with plan for paracentesis. No plan for TPN. Dietitian is recommending low fiber diet which will be changed. Patient has been afebrile, heart rate 117, blood pressure 104/63, pulse ox 97% on room air. White count is normal and a 0.5, hemoglobin 7.8, platelet count 502. Sodium 132, repeat lactic acid 1.3. Marinol has been added by oncology as well as one- time dose of morphine for pain control. All blood cultures status received. U magali culture in progress. Iron studies in process.. 03/14: Abdominal ultrasound shows loculated ascites. There is currently no plan for paracentesis. Patient is currently sweaty and clammy. She has no appetite and not eating. Patient was transitioned to a no code last evening. Heart rate is in the 120s, blood pressure 99/73, pulse ox 96% on room air, patient has been afebrile. Awaiting further 03/15: The patient had mental status changes last evening and this morning. Her mental status is improved at the time of this evaluation. Marinol was new for her and we will discontinue this and place her on Remeron for appetite. We have also discontinued gabapentin and decreased frequency of Arvonia. Patient only ate a couple bites of food this morning. She states it doesn't taste good. Patient is also tachycardic which she received a bolus of 500 mL which do not seem to make any difference. Heart rate remains elevated. She is complaining of pain that gets worse during the night and mostly to her back and pelvis area. She is unable to sleep through the night due to pain. Patient was able to undergo paracentesis yesterday with removal of 1.5 L which she was limited by loculation . Possibly patient may have repeat paracentesis on Sunday. Skin clamminess is improved today. MiraLAX added for constipation. Objective - Vital Signs Vital signs: Vital Signs Temp 98.2 F 03/15/19 05:03 Pulse 115 H 03/15/19 08:00 Resp 16 03/15/19 05:03 BP 121/86 03/15/19 05:03 Pulse Ox 97 03/15/19 05:03 Intake & Output 03/14/19 03/15/19 03/15/19 18:59 06:59 18:59 Intake Total 840 1330 Balance 840 1330 Intake: Intake, IV Titration 500 Amount Sodium Chloride 0.9% 500 500 ml 500 ml @ 999 mls/hr IV .Q31M [facility] Rx#:[id number] Oral 840 830 Other: Voiding Method Toilet Toilet # Voids 2 1 - Exam Review of Systems Constitutional: Reports fatigue, Reports lethargy, Reports poor appetite, Reports weakness, Reports weight loss, Denies chills, Denies fever, reports chronic pain, reports sweats Eyes: denies blurred vision, denies pain Ears, nose, mouth and throat: Reports vertigo, Denies dental pain, Denies he adache, Denies mouth pain, Denies sore throat Cardiovascular: Reports leg edema, Reports lightheadedness, Denies chest pain, Denies decreased exercise tolerance, Denies dyspnea on exertion, Denies edema, Denies shortness of breath, Denies syncope Respiratory: Denies cough, Denies cough with sputum, Denies dyspnea, Denies excessive sputum, Denies hemoptysis, Denies home oxygen, Denies wheezing Gastrointestinal: Reports bloating, Reports nausea, denies vomiting, Denies abdominal pain, Denies diarrhea, Denies hematemesis, Denies hematochezia, Denies jaundice Genitourinary: Denies dysuria, Denies hematuria, Denies urgency, Denies urinary frequency Musculoskeletal: Reports muscle weakness, Denies frequent falls, Denies gait dysfunction, Denies myalgias Integumentary: Reports lesions, Denies pruritus, Denies rash, Denies wounds Neurological: Denies aphasia, reports change in mentation, Denies change in speech, Denies confusion, Denies head injury, Denies headaches, Denies numbness, Denies seizures, Denies weakness Psychiatric: Denies anxiety, Denies depression Endocrine: Reports fatigue, reports weight change Gen: This is a thin 48-year-old female. She is resting in bed and is at bedside. HEENT: Head is atraumatic, normocephalic. Pupils equal, round. Sclerae is anicteric. Oral mucous members slightly dry. NECK: Supple. No JVD. No lymphadenopathy. No thyromegaly. LUNGS: Clear to auscultation. No wheezes or rhonchi. No intercostal re tractions. HEART: Regular rate and rhythm. No murmur. ABDOMEN: Soft. Abdominal distention. Positive ascites. Bowel sounds are present. No masses. Minimal generalized tenderness. EXTREMITIES: Trace bilateral pedal edema slightly increased on the left. No calf nor thigh tenderness. NEUROLOGICAL: Patient is awake, alert and oriented x3. Cranial nerves 2 through 12 are grossly intact. - Labs CBC & Chem 7: 03/15/19 06:55 03/15/19 06:55 Labs: Abnormal Lab Results - Last 24 Hours (Table) 03/14/19 03/14/19 03/15/19 Range/Units 15:44 15:44 06:55 WBC 11.5 H (3.8-10.6) k/uL RBC 3.64 L 3.27 L (3.80-5.40) m/uL Hgb 8.1 L 7.2 L (11.4-16.0) gm/dL Hct 28.4 L 25.2 L (34.0-46.0) % MCV 78.1 L 77.0 L (80.0-100.0) fL MCH 22.1 L 22.0 L (25.0-35.0) pg MCHC 28.3 L 28.6 L (31.0-37.0) g/dL RDW 18.4 H 19.4 H (11.5-15.5) % Plt Count 538 H 512 H (150-450) k/uL Neutrophils # 8.6 H (1.3-7.7) k/uL Monocytes # 1.1 H 1.1 H (0-1.0) k/uL Sodium 131 L (137-145) mmol/L Chloride 97 L (98-107) mmol/L BUN 18 H (7-17) mg/dL Glucose 142 H (74-99) mg/dL Calcium (8.4-10.2) mg/dL Alkaline Phosphatase 258 H (38-126) U/L Total Protein 5.3 L (6.3-8.2) g/dL Albumin 2.6 L (3.5-5.0) g/dL 03/15/19 Range/Units 06:55 WBC (3.8-10.6) k/uL RBC (3.80-5.40) m/uL Hgb (11.4-16.0) gm/dL Hct (34.0-46.0) % MCV (80.0-100.0) fL MCH (25.0-35.0) pg MCHC (31.0-37.0) g/dL RDW (11.5-15.5) % Plt Count (150-450) k/uL Neutrophils # (1.3-7.7) k/uL Monocytes # (0-1.0) k/uL Sodium 133 L (137-145) mmol/L Chloride (98-107) mmol/L BUN (7-17) mg/dL Glucose 124 H (74-99) mg/dL Calcium 8.3 L (8.4-10.2) mg/dL Alkaline Phosphatase 248 H (38-126) U/L Total Protein 4.9 L (6.3-8.2) g/dL Albumin 2.3 L (3.5-5.0) g/dL Microbiology - Last 24 Hours (Table) 03/14/19 17:30 Anaerobic Culture - Preliminary Ascites Fluid 03/14/19 17:30 Gram Stain - Preliminary Ascites Fluid Body Fluid Culture - Preliminary 03/12/19 14:44 Blood Culture - Preliminary Blood No Growth after 48 hours Assessment and Plan Plan: 1. Intractable nausea and vomiting secondary to colon cancer, ascites. Patient to continue IV fluids, diet advanced to low fiber, continue Zofran for nausea and tramadol and Arvonia for pain control. Try to avoid IV pain medications. Consult with Dr. Massey. 2. Hypotension, tachycardia and lightheadedness secondary to hypovolemia from nausea and vomiting. 3. Pulmonary embolism. Continue Xarelto. 4. History of ascending colon cancer status post right colectomy with metastatic disease. Patient is currently under care of Dr. Massey and chemotherapy with Camptosar and Vectibix. 5. Ascites status post paracentesis March 06 with removal of 20 half liters. Paracentesis by interventional radiology with removal of 1.5 L. 6. Possible urinary tract infection ruled out. Rocephin stopped. Doxycycline will be resumed. 7. Chemo-induced dermatitis. Continue doxycycline. 8. Gastroesophageal reflux disease. Continue Protonix. 9. Chronic pain syndrome. Continue tramadol, Arvonia. Avoid IV pain medication 10. Generalized anxiety disorder. Continue Ativan 0.5 mg 3 times daily as needed and amitriptyline 25 mg at bedtime. 11. Peripheral neuropathy. Gabapentin discontinued 12. Severe protein calorie malnutrition secondary to cancer. Protein supplementation. Marinol changed to Remeron 7.5 mg at bedtime 13. DVT prophylaxis. Xarelto. 14. Anemia most likely secondary to cancer. Iron studies in process. 15. Acute delirium most likely secondary to combination of medications and cancer. Gabapentin discontinued, Marinol discontinued, Arvonia frequency decreased. Nursing to avoid IV pain medication. Discharge plan: Return home Impression and plan of care have been directed as dictated by the signing physician. Lizy Sin nurse practitioner acting as scribe for signing physician.
[2019-03-15] MEDS: traMADol 50 MG TAB PO PRN (14:41)
[2019-03-15] MEDS: HYDROcodone/APAP 5-325MG 1 EACH TAB PO PRN (18:05)
[2019-03-15] MEDS: MORPHINE SULFATE 4 MG/ML SYRINGE IV PRN (20:06)
[2019-03-15] MEDS: AMITRIPTYLINE HCL 25 MG TAB PO SCH (21:32)
[2019-03-15] MEDS: MIRTAZAPINE 15 MG TAB PO SCH (21:33)
[2019-03-15] MEDS: SENNOSIDES-DOCUSATE SODIUM 1 EACH TAB PO SCH (21:34)
[2019-03-16] MEDS: SALT AND SODA MOUTHWASH 1,000 ML PO SCH ×5 (00:30→21:58)
[2019-03-16] MEDS: traMADol 50 MG TAB PO PRN ×3 (01:09→19:28)
[2019-03-16] MEDS: MORPHINE SULFATE 4 MG/ML SYRINGE IV PRN (04:25)
[2019-03-16] MEDS: SODIUM CHLORIDE 0.9% 1,000 ML IV SCH ×3 (06:17→13:33)
[2019-03-16] MEDS: FERROUS SULFATE 325 MG TAB PO SCH (08:48)
[2019-03-16] MEDS: LIDOCAINE 5% PATCH TOPICAL SCH (08:48)
[2019-03-16] MEDS: DOXYCYCLINE 100 MG CAP PO SCH ×2 (08:48→21:52)
[2019-03-16] MEDS: POLYETHYLENE GLYCOL 3350 17 GM POWD.PACK PO SCH (08:49)
[2019-03-16] MEDS: RIVAROXABAN 20 MG TAB PO SCH (08:49)
[2019-03-16] MEDS: PANTOPRAZOLE 40 MG TABLET PO SCH (08:49)
[2019-03-16] MEDS: MAG HYDROX/AL HYDROX/SIMETH 30 ML, LIDOCAINE VISCOUS 30 ML, diphenhydrAMINE ELIXIR 75 M... PO SCH ×12 (08:50→21:56)
[2019-03-16] MEDS: HYDROcodone/APAP 5-325MG 1 EACH TAB PO PRN ×2 (12:06→23:57)
[2019-03-16] MEDS: ONDANSETRON 4 MG/2 ML VIAL IVP PRN ×2 (12:09→21:51)
--- NOTE | 2019-03-16 12:34 | P.PN ---
Subjective Progress Note Date: 03/16/19 This is a 48-year-old female patient of Dr. Goldberg and Dr. Massey with past medical history of colon cancer with metastatic disease status post right hemicolectomy and appendectomy. Patient also has history of pulmonary embolism, gastroesophageal reflux disease, remote history of tobacco use and dependence and dermatitis from chemotherapy, chronic back pain. Patient most recently been on chemotherapy with Camptosar and Vectibix. She underwent her first paracentesis on March 06 with 2-1/2 L removed at [facility]. Patient states that her abdomen is smaller than before paracentesis. She also states lower extremity edema is improved. Patient gives history that she is eating very little and having trouble taking pills that causes her vomiting. She denies any sore throat. The patient is vomiting frequently but does feel that she would like to eat. Patient also, complains of generalized weakness and fatigue as well as lightheadedness. Patient was seen at Dr. Massey's office and s ent over to emergency center for evaluation. Her initial heart rate was 134 and blood pressure 87/61, she was afebrile. EKG was a sinus tachycardia with no acute ST changes. WBC 13.6, hemoglobin 9.4, platelet count 627. Sodium 133, potassium 4.3, chloride 93, CO2 27, BUN 19 creatinine 0.92, blood sugar 181. Patient denies history of diabetes. Lactic acid was 3.3. Phosphorus 4.7, alkaline phosphatase 3.8 and other liver function tests within normal limits, TSH 2.250. Urinalysis dark brown, turbid, leukoesterase large, squamous cell 61. Chest x-ray shows no acute process. Patient admitted to the Medr floor and continued on IV fluids, Rocephin, consult with oncology. Patient is on Zofran for nausea and morphine for pain control. Patient would like diet advanced to regular and agreed on chopped diet. 03/13: The patient continues to have some nausea and eating very little. Oncology has met with the patient with plan for paracentesis. No plan for TPN. Dietitian is recommending low fiber diet which will be changed. Patient has been afebrile, heart rate 117, blood pressure 104/63, pulse ox 97% on room air. White count is normal and a 0.5, hemoglobin 7.8, platelet count 502. Sodium 132, repeat lactic acid 1.3. Marinol has been added by oncology as well as one- time dose of morphine for pain control. All blood cultures status received. Nikita de los santos culture in progress. Iron studies in process.. 03/14: Abdominal ultrasound shows loculated ascites. There is currently no plan for paracentesis. Patient is currently sweaty and clammy. She has no appetite and not eating. Patient was transitioned to a no code last evening. Heart rate is in the 120s, blood pressure 99/73, pulse ox 96% on room air, patient has been afebrile. Awaiting further 03/15: The patient had mental status changes last evening and this morning. Her mental status is improved at the time of this evaluation. Marinol was new for her and we will discontinue this and place her on Remeron for appetite. We have also discontinued gabapentin and decreased frequency of [place]. Patient only ate a couple bites of food this morning. She states it doesn't taste good. Patient is also tachycardic which she received a bolus of 500 mL which do not seem to make any difference. Heart rate remains elevated. She is complaining of pain that gets worse during the night and mostly to her back and pelvis area. She is unable to sleep through the night due to pain. Patient was able to undergo paracentesis yesterday with removal of 1.5 L which she was limited by loculation . Possibly patient may have repeat paracentesis on Sunday. Skin clamminess is improved today. MiraLAX added for constipation. 03/16: The patient continues to complain of pain which is worse today and also complaining of shortness of breath just walking to the bathroom and generalized weakness. She is only eating occasional bite of food. The patient's son is at the bedside. Discussed with patient's and he states that they have are talked to hospice and she'll most likely go to the facility but they're waiting to hear from Dr. Massey. IV fluids decreased to 50 mL per hour. Fentanyl patch 12 g ordered. We'll wait for the patient has been to meet with Dr. Massey and plan for possible discharge or inpatient hospice. We'll also plan for possible paracentesis on Sunday for comfort. Objective - Vital Signs Vital signs: Vital Signs Temp 97.4 F L 03/16/19 12:00 Pulse 120 H 03/16/19 12:00 Resp 16 03/16/19 12:00 BP 103/66 03/16/19 12:00 Pulse Ox 95 03/16/19 12:00 Intake & Output 03/15/19 03/16/19 03/16/19 18:59 06:59 18:59 Other: Voiding Method Toilet # Voids 1 - Exam Review of Systems Constitutional: Reports fatigue, Reports lethargy, Reports poor appetite, Reports weakness, Reports weight loss, Denies chills, Denies fever, reports chronic pain, reports sweats Eyes: denies blurred vision, denies pain Ears, nose, mouth and throat: Reports vertigo, Denies dental pain, Denies headache, Denies mouth pain, Denies sore throat Cardiovascular: Reports leg edema, Reports lightheadedness, Denies chest pain, Denies decreased exercise tolerance, Denies dyspnea on exertion, Denies edema, Denies shortness of breath, Denies syncope Respiratory: Denies cough, Denies cough with sputum, reports dyspnea, Denies excessive sputum, Denies hemoptysis, Denies home oxygen, Denies wheezing Gastrointestinal: Reports bloating, Reports nausea, denies vomiting, Denies abdominal pain, Denies diarrhea, Denies hematemesis, Denies hematochezia, Denies jaundice Genitourinary: Denies dysuria, Denies hematuria, Denies urgency, Denies urinary frequency Musculoskeletal: Reports muscle weakness, Denies frequent falls, Denies gait dysfunction, Denies myalgias Integumentary: Reports lesions, Denies pruritus, Denies rash, Denies wounds Neurological: Denies aphasia, reports change in mentation, Denies change in speech, Denies confusion, Denies head injury, Denies headaches, Denies numbness, Denies seizures, Denies weakness Psychiatric: Denies anxiety, Denies depression Endocrine: Reports fatigue, reports weight change Gen: This is a thin 48-year-old female. She is resting in bed and is at bedside. HEENT: Head is atraumatic, normocephalic. Pupils equal, round. Sclerae is anicteric. Oral mucous members slightly dry. NECK: Supple. No JVD. No lymphadenopathy. No thyromegaly. LUNGS: Clear to auscultation. No wheezes or rhonchi. No intercostal retractions. HEART: Regular rate and rhythm. No murmur. ABDOMEN: Soft. Abdominal distention. Positive ascites. Bowel sounds are present. No masses. Minimal generalized tenderness. EXTREMITIES: Trace bilateral pedal edema slightly increased on the left. No c ирина nor thigh tenderness. NEUROLOGICAL: Patient is awake, alert and oriented x3. Cranial nerves 2 through 12 are grossly intact. - Labs CBC & Chem 7: 03/15/19 06:55 03/15/19 06:55 Labs: Microbiology - Last 24 Hours (Table) 03/14/19 17:30 Gram Stain - Preliminary Ascites Fluid Body Fluid Culture - Preliminary 03/12/19 14:44 Blood Culture - Preliminary Blood No Growth after 72 hours Assessment and Plan Plan: 1. Intractable nausea and vomiting secondary to colon cancer, ascites. Patient to continue IV fluids decreased to 50 mL per hour, diet advanced to low fiber, continue Zofran for nausea but no patch added for pain control. Continue [place] or tramadol, lidocaine patch Consult with Dr. Massey. 2. Hypotension, tachycardia and lightheadedness secondary to hypovolemia from nausea and vomiting. 3. Pulmonary embolism. Continue Xarelto. 4. History of ascending colon cancer status post right colectomy with metastatic disease. Patient is currently under care of Dr. Massey and chemotherapy with Camptosar and Vectibix. 5. Ascites status post paracentesis March 06 with removal of 20 half liters. Paracentesis by interventional radiology with removal of 1.5 L. Repeat ultrasound on Sunday for possible paracentesis. 6. Possible urinary tract infection ruled out. Rocephin stopped. Doxycycline will be resumed. 7. Chemo-induced dermatitis. Continue doxycycline. 8. Gastroesophageal reflux disease. Continue Protonix. 9. Chronic pain syndrome. Continue tramadol, [place], fentanyl patch. 10. Generalized anxiety disorder. Continue Ativan 0.5 mg 3 times daily as needed and amitriptyline 25 mg at bedtime. 11. Peripheral neuropathy. Gabapentin discontinued 12. Severe protein calorie malnutrition secondary to cancer. Protein supplementation. Marinol changed to Remeron 7.5 mg at bedtime 13. DVT prophylaxis. Xarelto. 14. Anemia most likely secondary to cancer. Iron studies in process. 15. Acute delirium most likely secondary to combination of medications and cancer. Gabapentin discontinued, Marinol discontinued, [place] frequency decreased. Discharge plan: Hospice home or inpatient hospice. Impression and plan of care have been directed as dictated by the signing physician. Lizy Sin nurse practitioner acting as scribe for signing physician.
--- NOTE | 2019-03-16 13:13 | ECHOF ---
Referral Reason:Evaluation on chemo MEASUREMENTS -------- HEIGHT: 157.5 cm WEIGHT: 65.3 kg BP: 121/86 IVSd: 1.0 cm (0.6 - 1.1) LVIDd: 4.2 cm (3.9 - 5.3) LVPWd: 1.2 cm (0.6 - 1.1) EDV(Teich): 79 ml IVSs: 1.2 cm LVIDs: 2.7 cm LVPWs: 1.5 cm %IVS Thck: 20 % ESV(Teich): 27 ml EF(Teich): 66 % %FS: 36 % SV(Teich): 52 ml LA Diam: 2.8 cm (2.7 - 3.8) RVIDd: 2.3 cm (< 3.3) LALs A4C: 3.8 cm LAAs A4C: 8.2 cm LAESV A-L A4C: 15 ml LAESV MOD A4C: 12 ml LALs A2C: 2.6 cm LAAs A2C: 5.8 cm LAESV A-L A2C: 11 ml LAESV MOD A2C: 10 ml LAESV(A-L): 16 ml LAESV Index (A-L): 9.55 ml/m Ao Diam: 2.8 cm (2.0 - 3.7) AV Cusp: 1.6 cm (1.5 - 2.6) EPSS: 0.5 cm MV E Jaswant: 0.80 m/s MV DecT: 163 ms MV Dec [place]: 4.9 m/s MV A Jaswant: 0.98 m/s MV E/A Ratio: 0.82 MV PHT: 47 ms AV Vmax: 1.30 m/s AV maxP.77 mmHg MV EF SLOPE: 63.65 mm/s (70 - 150) MV EXCURSION: 17.66 mm (> 18.000) FINDINGS -------- Resting tachycardia (HR>100bpm). This was a technically good study. The left ventricular size is normal. There is borderline concentric left ventricular hypertrophy. Overall left ventricular systolic function is normal with, an EF between 55 - 60 %. The right ventricle is normal in size. Normal LA size by volume 22+/-6 ml/m2. The right atrium is normal in size. Interatrial and interventricular septum intact. Aortic valve is trileaflet and is mildly thickened. The mitral valve leaflets are mildly thickened. The tricuspid valve appears structurally normal. There is no pulmonic regurgitation present. The aortic root size is normal. Normal inferior vena cava with normal inspiratory collapse consistent with estimated right atrial pre ssure of 5 mmHg. There is no pericardial effusion. CONCLUSIONS -------- 1. Resting tachycardia (HR>100bpm). 2. This was a technically good study. 3. The left ventricular size is normal. 4. There is borderline concentric left ventricular hypertrophy. 5. Overall left ventricular systolic function is normal with, an EF between 55 - 60 %. 6. The right ventricle is normal in size. 7. Normal LA size by volume 22+/-6 ml/m2. 8. The right atrium is normal in size. 9. Interatrial and interventricular septum intact. 10. Aortic valve is trileaflet and is mildly thickened. 11. The mitral valve leaflets are mildly thickened. 12. The tricuspid valve appears structurally normal. 13. There is no pulmonic regurgitation present. 14. The aortic root size is normal. 15. Normal inferior vena cava with normal inspiratory collapse consistent with estimated right atrial pressure of 5 mmHg. 16. There is no pericardial effusion. LABOR LAW PROFESSOR: Sandra Cedeño RDCS
[2019-03-16] MEDS: AMITRIPTYLINE HCL 25 MG TAB PO SCH (21:52)
[2019-03-16] MEDS: SENNOSIDES-DOCUSATE SODIUM 1 EACH TAB PO SCH (21:52)
[2019-03-16] MEDS: MIRTAZAPINE 15 MG TAB PO SCH (21:52)
[2019-03-17] MEDS: SALT AND SODA MOUTHWASH 1,000 ML PO SCH ×6 (00:39→22:35)
[2019-03-17] MEDS: traMADol 50 MG TAB PO PRN ×2 (03:47→14:34)
[2019-03-17] MEDS: SODIUM CHLORIDE 0.9% 1,000 ML IV SCH (07:39)
[2019-03-17] MEDS: ONDANSETRON 4 MG/2 ML VIAL IVP PRN (07:43)
[2019-03-17] MEDS: FERROUS SULFATE 325 MG TAB PO SCH (07:45)
[2019-03-17] MEDS: PANTOPRAZOLE 40 MG TABLET PO SCH (07:45)
[2019-03-17] MEDS: POLYETHYLENE GLYCOL 3350 17 GM POWD.PACK PO SCH (07:46)
[2019-03-17] MEDS: RIVAROXABAN 20 MG TAB PO SCH (07:47)
[2019-03-17] MEDS: DOXYCYCLINE 100 MG CAP PO SCH ×2 (07:47→20:47)
[2019-03-17] MEDS: LIDOCAINE 5% PATCH TOPICAL SCH (07:49)
[2019-03-17] MEDS: HYDROcodone/APAP 5-325MG 1 EACH TAB PO PRN (07:50)
[2019-03-17] MEDS: MAG HYDROX/AL HYDROX/SIMETH 30 ML, LIDOCAINE VISCOUS 30 ML, diphenhydrAMINE ELIXIR 75 M... PO SCH ×12 (07:54→21:57)
--- NOTE | 2019-03-17 08:10 | US ---
EXAMINATION TYPE: US paracentesis abd w/image DATE OF EXAM: 03/14/2019 COMPARISON: NONE HISTORY: Ascites. PROCEDURE: Maximal barrier technique was utilized. The skin overlying a suitable pocket of fluid was localized with ultrasound and the overlying skin was prepped and draped. Ultrasound was utilized with sterile technique. Lidocaine was used for local anesthesia and a skin jc made with a scalpel. Catheter 5F w as advanced under direct ultrasound guidance into a suitable pocket of fluid, the stream was intermit tent and stopped, 6 [place] catheter was introduced and approximately 1.5 liters of sanguinous fluid w ere removed. Catheter was withdrawn and hemostasis achieved. There is no immediate complication; th e patient is discharged in stable condition. IMPRESSION: STATUS POST ULTRASOUND GUIDED PARACENTESIS FOR PALLIATION OF ASCITES. THIS PROCEDURE WA S PERFORMED BY THE UNDERSIGNED. Fluid sent for laboratory analysis. Clot is suspected within the as citic fluid.
--- NOTE | 2019-03-17 08:49 | US ---
EXAMINATION TYPE: US abdomen limited DATE OF EXAM: 03/17/2019 COMPARISON: US 2019 antegrade medicine PET/CT 03/01/2019 CLINICAL HISTORY: ascites, eval for repeat paracentesis. Ascites check, exam done portable. Cystic mass with solid components and septations is noted. There is ascites present with low-level in ternal echoes compatible with blood. IMPRESSION: Patient's pelvic mass, complicated ascites noted.
[2019-03-17 10:03] LABS: Iron Saturation 5.34 (12.00-45.00)
[2019-03-17] MEDS: MORPHINE SULFATE 4 MG/ML SYRINGE IV PRN ×4 (11:06→20:50)
[2019-03-17 13:30] LABS: Methylmalonic Acid 0.16 umol/L (<0.40)
--- NOTE | 2019-03-17 15:26 | P.PN ---
Subjective Progress Note Date: 03/17/19 This is a 48-year-old female patient of Dr. Goldberg and Dr. Massey with past medical history of colon cancer with metastatic disease status post right hemicolectomy and appendectomy. Patient also has history of pulmonary embolism, gastroesophageal reflux disease, remote history of tobacco use and dependence and dermatitis from chemotherapy, chronic back pain. Patient most recently been on chemotherapy with Camptosar and Vectibix. She underwent her first paracentesis on March 06 with 2-1/2 L removed at [facility]. Patient states that her abdomen is smaller than before paracentesis. She also states lower extremity edema is improved. Patient gives history that she is eating very little and having trouble taking pills that causes her vomiting. She denies any sore throat. The patient is vomiting frequently but does feel that she would like to eat. Patient also, complains of generalized weakness and fatigue as well as lightheadedness. Patient was seen at Dr. Massey's office and s ent over to [facility] emergency center for evaluation. Her initial heart rate was 134 and blood pressure 87/61, she was afebrile. EKG was a sinus tachycardia with no acute ST changes. WBC 13.6, hemoglobin 9.4, platelet count 627. Sodium 133, potassium 4.3, chloride 93, CO2 27, BUN 19 creatinine 0.92, blood sugar 181. Patient denies history of diabetes. Lactic acid was 3.3. Phosphorus 4.7, alkaline phosphatase 3.8 and other liver function tests within normal limits, TSH 2.250. Urinalysis dark brown, turbid, leukoesterase large, squamous cell 61. Chest x-ray shows no acute process. Patient admitted to the Medr floor and continued on IV fluids, Rocephin, consult with oncology. Patient is on Zofran for nausea and morphine for pain control. Patient would like diet advanced to regular and agreed on chopped diet. 03/13: The patient continues to have some nausea and eating very little. Oncology has met with the patient with plan for paracentesis. No plan for TPN. Dietitian is recommending low fiber diet which will be changed. Patient has been afebrile, heart rate 117, blood pressure 104/63, pulse ox 97% on room air. White count is normal and a 0.5, hemoglobin 7.8, platelet count 502. Sodium 132, repeat lactic acid 1.3. Marinol has been added by oncology as well as one- time dose of morphine for pain control. All blood cultures status received. Nikita de los santos culture in progress. Iron studies in process.. 03/14: Abdominal ultrasound shows loculated ascites. There is currently no plan for paracentesis. Patient is currently sweaty and clammy. She has no appetite and not eating. Patient was transitioned to a no code last evening. Heart rate is in the 120s, blood pressure 99/73, pulse ox 96% on room air, patient has been afebrile. Awaiting further 03/15: The patient had mental status changes last evening and this morning. Her mental status is improved at the time of this evaluation. Marinol was new for her and we will discontinue this and place her on Remeron for appetite. We have also discontinued gabapentin and decreased frequency of [place]. Patient only ate a couple bites of food this morning. She states it doesn't taste good. Patient is also tachycardic which she received a bolus of 500 mL which do not seem to make any difference. Heart rate remains elevated. She is complaining of pain that gets worse during the night and mostly to her back and pelvis area. She is unable to sleep through the night due to pain. Patient was able to undergo paracentesis yesterday with removal of 1.5 L which she was limited by loculation . Possibly patient may have repeat paracentesis on Sunday. Skin clamminess is improved today. MiraLAX added for constipation. 03/16: The patient continues to complain of pain which is worse today and also complaining of shortness of breath just walking to the bathroom and generalized weakness. She is only eating occasional bite of food. The patient's son is at the bedside. Discussed with patient's and he states that they have are talked to hospice and she'll most likely go to the facility but they're waiting to hear from Dr. Massey. IV fluids decreased to 50 mL per hour. Fentanyl patch 12 g ordered. We'll wait for the patient has been to meet with Dr. Massey and plan for possible discharge or inpatient hospice. We'll also plan for possible paracentesis on Sunday for comfort. 03/17: Patient is not sure that the fentanyl patch has helped her pain control. She states that she has had increased abdominal pain. She thinks her abdomen may be firmer than before. She states she ate 2 bites of banana this morning in that setting. Oncology is met with patient regarding prognosis and plan of care. Patient has been resumed on morphine IV. Repeat ultrasound of the abdomen reveals pelvic mass, complicated ascites. Patient may need general surgery for paracentesis and placement. Patient to meet with hospice. Objective - Vital Signs Vital signs: Vital Signs Temp 97.9 F 03/17/19 04:27 Pulse 108 H 03/17/19 04:27 Resp 16 03/17/19 04:27 BP 98/58 03/17/19 04:27 Pulse Ox 98 03/17/19 04:27 Intake & Output 03/16/19 03/17/19 03/17/19 18:59 06:59 18:59 Intake Total 240 Balance 240 Intake: Oral 240 Other: Voiding Method Toilet Toilet Toilet # Voids 2 1 - Exam Review of Systems Constitutional: Reports fatigue, Reports lethargy, Reports poor appetite, Reports weakness, Reports weight loss, Denies chills, Denies fever, reports chronic pain, reports sweats Eyes: denies blurred vision, denies pain Ears, nose, mouth and throat: Reports vertigo, Denies dental pain, Denies headache, Denies mouth pain, Denies sore throat Cardiovascular: Reports leg edema, Reports lightheadedness, Denies chest pain, Denies decreased exercise tolerance, Denies dyspnea on exertion, Denies edema, Denies shortness of breath, Denies syncope Respiratory: Denies cough, Denies cough with sputum, reports dyspnea, Denies excessive sputum, Denies hemoptysis, Denies home oxygen, Denies wheezing Gastrointestinal: Reports bloating, Reports nausea, denies vomiting, reports diminished in the bases abdominal pain, Denies diarrhea, Denies hematemesis, Denies hematochezia, Denies jaundice Genitourinary: Denies dysuria, Denies hematuria, Denies urgency, Denies urinary frequency Musculoskeletal: Reports muscle weakness, Denies frequent falls, Denies gait dysfunction, Denies myalgias Integumentary: Reports lesions, Denies pruritus, Denies rash, Denies wounds Neurological: Denies aphasia, reports change in mentation, Denies change in speech, Denies confusion, Denies head injury, Denies headaches, Denies numbness, Denies seizures, Denies weakness Psychiatric: Denies anxiety, Denies depression Endocrine: Reports fatigue, reports weight change Gen: This is a thin 48-year-old female. She is resting in bed and is at bedside. HEENT: Head is atraumatic, normocephalic. Pupils equal, round. Sclerae is anicteric. Oral mucous members slightly dry. NECK: Supple. No JVD. No lymphadenopathy. No thyromegaly. LUNGS: Clear to auscultation. No wheezes or rhonchi. No intercostal retractions. HEART: Regular rate and rhythm. No murmur. ABDOMEN: Soft. Abdominal distention. Positive ascites. Bowel sounds are present. No masses. Minimal generalized tenderness. EXTREMITIES: Trace bilateral pedal edema slightly increased on the left. No calf nor thigh tenderness. NEUROLOGICAL: Patient is awake, alert and oriented x3. Cranial nerves 2 through 12 are grossly intact. - Labs CBC & Chem 7: 03/15/19 06:55 03/15/19 06:55 Labs: Abnormal Lab Results - Last 24 Hours (Table) 03/15/19 Range/Units 06:55 Iron 11 L (50-170) ug/dL TIBC 206 L (228-460) ug/dL Iron Saturation 5.34 L (12.00-45.00) Microbiology - Last 24 Hours (Table) 03/14/19 17:30 Anaerobic Culture - Preliminary Ascites Fluid 03/14/19 17:30 Gram Stain - Preliminary Ascites Fluid Body Fluid Culture - Preliminary 03/12/19 14:44 Blood Culture - Preliminary Blood No Growth after 96 hours Assessment and Plan Plan: 1. Intractable nausea and vomiting secondary to colon cancer, ascites. Patient to continue IV fluids decreased to 50 mL per hour, diet advanced to low fiber, continue Zofran for nausea but no patch added for pain control. Continue [place] or tramadol, lidocaine patch Consult with Dr. Massey. Fentanyl patch was added yesterday. Morphine as needed for pain control. 2. Hypotension, tachycardia and lightheadedness secondary to hypovolemia from nausea and vomiting. 3. Pulmonary embolism. Continue Xarelto. 4. History of ascending colon cancer status post right colectomy with metastatic disease. Patient is currently under care of Dr. Massey and chemotherapy with Camptosar and Vectibix. 5. Ascites status post paracentesis March 06 with removal of 20 half liters. Paracentesis by interventional radiology with removal of 1.5 L. Repeat ultrasound on Sunday for possible paracentesis. 6. Possible urinary tract infection ruled out. Rocephin stopped. Doxycycline will be resumed. 7. Chemo-induced dermatitis. Continue doxycycline. 8. Gastroesophageal reflux disease. Continue Protonix. 9. Chronic pain syndrome. Continue tramadol, [place], fentanyl patch. Morphine IV. 10. Generalized anxiety disorder. Continue Ativan 0.5 mg 3 times daily as needed and amitriptyline 25 mg at bedtime. 11. Peripheral neuropathy. Gabapentin discontinued 12. Severe protein calorie malnutrition secondary to cancer. Protein supple mentation. Marinol changed to Remeron 7.5 mg at bedtime 13. DVT prophylaxis. Xarelto. 14. Anemia most likely secondary to cancer. 15. Acute delirium most likely secondary to combination of medications and cancer. Gabapentin discontinued, Marinol discontinued, [place] frequency decreased. Discharge plan: Hospice home or inpatient hospice. Impression and plan of care have been directed as dictated by the signing physician. Lizy Sin nurse practitioner acting as scribe for signing bang barrett.
--- NOTE | 2019-03-17 18:33 | P.PN ---
<Terra Owen - Last Filed: 03/17/19 18:21> Subjective Progress Note Date: 03/17/19 Principal diagnosis: dehydration, pain from malignancy, urinary tract infection In follow-up today patient has complaints of intermittent nausea, using anti- emetics, no vomiting today. Marinol was discontinued due to confusion. Patient clarifies that appetite is decent, she has early satiety. Her back/abd pain is not well controlled, she had 1.5L paracentesis, mild abd relief, her are asking about the PET scan comparison Objective - Vital Signs Vital signs: Vital Signs Temp 97.5 F L 03/17/19 11:26 Pulse 120 H 03/17/19 11:26 Resp 18 03/17/19 11:26 BP 106/66 03/17/19 11:26 Pulse Ox 95 03/17/19 11:26 Intake & Output 03/16/19 03/17/19 03/17/19 18:59 06:59 18:59 Intake Total 240 Balance 240 Weight 65.317 kg Intake: Oral 240 Other: Voiding Method Toilet Toilet Toilet # Voids 2 1 1 - Exam Well-developed thin, frail, severely distended abdomen, no acute distress, alert and oriented 4, skin is warm and dry, noted scarring from EGFR treatments, pain with palpation of the lower abdomen and the back, mild lower extremity swelling, no gross focal or motor or neural deficits, patient is appropriate in mood and affect. - Labs CBC & Chem 7: 03/15/19 06:55 03/15/19 06:55 Labs: Abnormal Lab Results - Last 24 Hours (Table) 03/15/19 Range/Units 06:55 Iron 11 L (50-170) ug/dL TIBC 206 L (228-460) ug/dL Iron Saturation 5.34 L (12.00-45.00) Microbiology - Last 24 Hours (Table) 03/14/19 17:30 Gram Stain - Preliminary Ascites Fluid Body Fluid Culture - Preliminary 03/12/19 14:44 Blood Culture - Preliminary Blood No Growth after 120 hours 03/14/19 17:30 Anaerobic Culture - Preliminary Ascites Fluid Assessment and Plan (1) Anorexia Narrative/Plan: Marinol discontinued by Attending due to patient's confusion. Patient did clarify today that it is not her appetite but early satiety that is the problem. This is going to be handled through Dietitian meeting with the patient. Expla ined to patient small amounts of food, high calorie value, and grazing all day long versus 2 or 3 set meals a day. She and her family verbalized understanding Current Visit: Yes Status: Acute Priority: High Code(s): R63.0 - ANOREXIA SNOMED Code(s): 75042779 (2) Colon cancer Narrative/Plan: Reviewed with patient and her family the comparison PET scan results. The PET scan could not definitively say if there was a slight amount of progression versus disease stability. With this in mind, patient did have some difficulty tolerating the regimen. Unfortunately, the situation is that if the dose were reviewed to be reduced this would also decrease efficacy. If malignancy is only being stabilized at the current dose it is highly suspected that the disease will progress with the decrease in dose. Patient and family do understand that intent of any treatment is going to be palliative in nature and prolongation of life. Patient states being rather miserable with her quality of life at this time. We reviewed quality versus quantity. Discussed more good days than bad days. Patient had multiple questions about palliative care, hospice care and management of symptoms at end-of-life. Recommended to have an informational visit with both services, her and her family agree to the same. Current Visit: Yes Status: Chronic Priority: High Code(s): C18.9 - MALIGNANT NEOPLASM OF COLON, UNSPECIFIED SNOMED Code(s): 823713518 (3) Dehydration Current Visit: Yes Status: Acute Priority: High Code(s): E86.0 - DEHYDRATION SNOMED Code(s): 99647112 (4) UTI (urinary tract infection) Current Visit: Yes Status: Acute Priority: High Code(s): N39.0 - URINARY TRACT INFECTION, SITE NOT SPECIFIED SNOMED Code(s): 81227187 (5) Abdominal pain Narrative/Plan: Pain medications ordered and adjusted. Will continue to evaluate effectiveness and titrate for comfort Current Visit: Yes Status: Acute Priority: High Code(s): R10.9 - UNSPECIFIED ABDOMINAL PAIN SNOMED Code(s): 03372120 (6) Mucositis (ulcerative) due to antineoplastic therapy Narrative/Plan: Continue supportive care Current Visit: Yes Status: Resolved Priority: High Code(s): K12.31 - ORAL MUCOSITIS (ULCERATIVE) DUE TO ANTINEOPLASTIC THERAPY SNOMED Code(s): 672472964 Plan: Did discuss the case with Attending. Did suggest the possibility of a pigtail catheter for palliation of recurrent malignant ascites. Once patient has had an opportunity to think over her choices and she has making some decisions, we will proceed from there. Time with Patient: Greater than 30 (40 min spent, Hospice, palliative care discussion, >50% time) <Shilpa,Jose - Last Filed: 03/18/19 00:39> Objective - Vital Signs Vital signs: Vital Signs Temp 97.8 F 03/17/19 19:52 Pulse 125 H 03/17/19 19:52 Resp 18 03/17/19 19:52 BP 92/65 03/17/19 19:52 Pulse Ox 98 03/17/19 19:52 Intake & Output 03/17/19 03/17/19 03/18/19 06:59 18:59 06:59 Weight 65.317 kg Other: Voiding Method Toilet Toilet # Voids 1 1 - Labs CBC & Chem 7: 03/15/19 06:55 03/15/19 06:55 Labs: Abnormal Lab Results - Last 24 Hours (Table) 03/15/19 Range/Units 06:55 Iron 11 L (50-170) ug/dL TIBC 206 L (228-460) ug/dL Iron Saturation 5.34 L (12.00-45.00) Microbiology - Last 24 Hours (Table) 03/14/19 17:30 Gram Stain - Preliminary Ascites Fluid Body Fluid Culture - Preliminary 03/12/19 14:44 Blood Culture - Preliminary Blood No Growth after 120 hours 03/14/19 17:30 Anaerobic Culture - Preliminary Ascites Fluid Assessment and Plan Plan: I had a long discussion with the patient and her family, about the current status of her disease and goals of care. Her recent PET scan was personally discussed with radiology, and comparison requested with previous one done at [facility]. Per my discussion with radiology, there was some suspicion of progression especially in the pelvic mass but overall this was not definite. There did not appear to be major response based on PET scan. Tumor markers had fluctuated, dropping after the initial cycle, then increasing into the 500 range, subsequent drop into the 300 range. Clinically, with recurrent ascites which is bloody, progression is definitely a possibility - The plan, after discussion of the PET scan, had been to give the patient the benefit of the doubt and continue her current regimen with close follow-up and repeat testing after 2 cycles. However her tolerance of chemotherapy, and performance status steadily decreasing. Therefore even if her disease were stable, it would be difficult to continue chemotherapy at the same dose. On the other hand dose reduction would result in major concerns regarding efficacy. - If the patient is progressing on her current regimen, her prognosis would be quite poor, with very limited options remaining, but overall poor chances of response, and generally small duration of responses - The above was discussed in detail with the patient and her family. She expressed understanding. He has therefore decided to stop active treatment, and opt for comfort care. Given the above this appears to be quite reasonable. - She'll continue to have paracentesis for comfort as needed - placement of an indwelling peritoneal catheter was also discussed.This would certainly enhance the patient's convenience. However benefit may be compromised if the patient has loculations, and/or develops occlusion. In addition there could be increased risk of infection. Therefore at this time the patient has decided against it but will think about it further, and let us know
[2019-03-17] MEDS: AMITRIPTYLINE HCL 25 MG TAB PO SCH (20:47)
[2019-03-17] MEDS: SENNOSIDES-DOCUSATE SODIUM 1 EACH TAB PO SCH (20:47)
[2019-03-17] MEDS: MIRTAZAPINE 15 MG TAB PO SCH (20:47)
[2019-03-18] MEDS: MORPHINE SULFATE 4 MG/ML SYRINGE IV PRN ×5 (00:05→14:23)
[2019-03-18] MEDS: SODIUM CHLORIDE 0.9% 1,000 ML IV SCH (03:51)
[2019-03-18 04:51] VITALS: RESP 16; TEMP 97.9
[2019-03-18] MEDS: SALT AND SODA MOUTHWASH 1,000 ML PO SCH ×3 (06:01→12:56)
[2019-03-18] MEDS: POLYETHYLENE GLYCOL 3350 17 GM POWD.PACK PO SCH (07:27)
[2019-03-18] MEDS: FERROUS SULFATE 325 MG TAB PO SCH (07:33)
[2019-03-18] MEDS: RIVAROXABAN 20 MG TAB PO SCH (07:33)
[2019-03-18] MEDS: LIDOCAINE 5% PATCH TOPICAL SCH (07:35)
[2019-03-18] MEDS: DOXYCYCLINE 100 MG CAP PO SCH (07:35)
[2019-03-18] MEDS: PANTOPRAZOLE 40 MG TABLET PO SCH (07:35)
[2019-03-18] MEDS: MAG HYDROX/AL HYDROX/SIMETH 30 ML, LIDOCAINE VISCOUS 30 ML, diphenhydrAMINE ELIXIR 75 M... PO SCH ×4 (07:39)
[2019-03-18] MEDS: ONDANSETRON 4 MG/2 ML VIAL IVP PRN ×2 (10:28→14:24)
[2019-03-18] MEDS: LORazepam 0.5 MG TAB PO PRN (10:28)
[2019-03-18 10:55] LABS: INR 1.3 (<1.2); Prothrombin Time 12.9 sec (9.0-12.0)
[2019-03-18 10:57] LABS: Anisocytosis Slight; HCT 27.1 % (34.0-46.0); HGB 7.6 gm/dL (11.4-16.0); Hypochromasia Marked; MCH 21.6 pg (25.0-35.0); MCHC 27.9 g/dL (31.0-37.0); MCV 77.3 fL (80.0-100.0); Mean Platelet Volume 6.7; Microcytosis Slight; Platelet Count 577 k/uL (150-450); RDW 19.2 % (11.5-15.5); WBC 11.9 k/uL (3.8-10.6)
--- NOTE | 2019-03-18 11:28 | P.DS ---
Providers Date of admission: 03/13/19 08:16 Expected date of discharge: 03/18/19 Attending physician: Portillo Maldonado Consults: 03/12/19 12:56 Consult Physician Urgent Consulting Provider: Jose Massey Consult Reason/Comments: oncological care Do you want consulting provider notified?: Yes Primary care physician: Yael Goldberg MD Hospital Course: This is a 48-year-old female patient of Dr. Goldberg and Dr. Massey with past medical history of colon cancer with metastatic disease status post right hemicolectomy and appendectomy. Patient also has history of pulmonary embolism, gastroesophageal reflux disease, remote history of tobacco use and dependence and dermatitis from chemotherapy, chronic back pain. Patient most recently been on chemotherapy with Camptosar and Vectibix. She underwent her first paracentesis on March 06 with 2-1/2 L removed at [facility]. Patient states that her abdomen is smaller than before paracentesis. She also states lower extremity edema is improved. Patient gives history that she is eating very little and having trouble taking pills that causes her vomiting. She denies any sore throat. The patient is vomiting frequently but does feel that she would like to eat. Patient also, complains of generalized weakness and fatigue as well as lightheadedness. Patient was seen at Dr. Massey's office and sent over to [facility] emergency center for evaluation. Her initial heart rate was 134 and blood pressure 87/61, she was afebrile. EKG was a sinus tachycardia with no acute ST changes. WBC 13.6, hemoglobin 9.4, platelet count 627. Sodium 133, potassium 4.3, chloride 93, CO2 27, BUN 19 creatinine 0.92, blood sugar 181. Patient denies history of diabetes. Lactic acid was 3.3. Phosphorus 4.7, alkaline phosphatase 3.8 and other liver function tests within normal limits, TSH 2.250. Urinalysis dark brown, turbid, leukoesterase large, squamous cell 61. Chest x-ray shows no acute process. Patient admitted to the MedSurg floor and continued on IV fluids, Rocephin, consult with oncology. Patient is on Zofran for nausea and morphine for pain control. Patient would like diet advanced to regular and agreed on chopped diet. 03/13: The patient continues to have some nausea and eating very little. Oncology has met with the patient with plan for paracentesis. No plan for TPN. Dietitian is recommending low fiber diet which will be changed. Patient has been afebrile, heart rate 117, blood pressure 104/63, pulse ox 97% on room air. White count is normal and a 0.5, hemoglobin 7.8, platelet count 502. Sodium 132, repeat lactic acid 1.3. Marinol has been added by oncology as well as one- time dose of morphine for pain control. All blood cultures status received. Urine culture in progress. Iron studies in process.. 03/14: Abdominal ultrasound shows loculated ascites. There is currently no plan for paracentesis. Patient is currently sweaty and clammy. She has no appetite and not eating. Patient was transitioned to a no code last evening. Heart rate is in the 120s, blood pressure 99/73, pulse ox 96% on room air, patient has been afebrile. Awaiting further 03/15: The patient had mental status changes last evening and this morning. Her mental status is improved at the time of this evaluation. Marinol was new for her and we will discontinue this and place her on Remeron for appetite. We have also discontinued gabapentin and decreased frequency of [place]. Patient only ate a couple bites of food this morning. She states it doesn't taste good. Patient is also tachycardic which she received a bolus of 500 mL which do not seem to make any difference. Heart rate remains elevated. She is complaining of pain that gets worse during the night and mostly to her back and pelvis area. She is unable to sleep through the night due to pain. Patient was able to undergo paracentesis yesterday with removal of 1.5 L which she was limited by loculation. Possibly patient may have repeat paracentesis on Sunday. Skin clamminess is improved today. MiraLAX added for constipation. 03/16: The patient continues to complain of pain which is worse today and also complaining of shortness of breath just walking to the bathroom and generalized weakness. She is only eating occasional bite of food. The patient's son is at the bedside. Discussed with patient's and he states that they have are talked to hospice and she'll most likely go to the facility but they're waiting to hear from Dr. Massey. IV fluids decreased to 50 mL per hour. Fentanyl patch 12 g ordered. We'll wait for the patient has been to meet with Dr. Massey and plan for possible discharge or inpatient hospice. We'll also plan for possible paracentesis on Sunday for comfort. 03/17: Patient is not sure that the fentanyl patch has helped her pain control. She states that she has had increased abdominal pain. She thinks her abdomen may be firmer than before. She states she ate 2 bites of banana this morning in that setting. Oncology is met with patient regarding prognosis and plan of care. Patient has been resumed on morphine IV. Repeat ultrasound of the abdomen reveals pelvic mass, complicated ascites. Patient may need general surgery for paracentesis and placement. Patient to meet with hospice. 03/18: Patient continues to have significant pain along with shortness of breath, nausea, tachypnea. We have increased her fentanyl patch to 25 g per hour. Paracentesis performed this afternoon and patient is feeling much better following this. Patient would like to go home and this will be arranged with [facility] today. Start talking form has been completed. Discharge diagnoses: 1. Intractable nausea and vomiting secondary to colon cancer, ascites. 2. Hypotension, tachycardia and lightheadedness secondary to hypovolemia from nausea and vomiting. 3. Pulmonary embolism. 4. History of ascending colon cancer status post right colectomy with m etastatic disease. 5. Ascites status post paracentesis March 06 with removal of 20 half liters. Paracentesis by interventional radiology with removal of 1.5 L. 6. Possible urinary tract infection ruled out. 7. Chemo-induced dermatitis. 8. Gastroesophageal reflux disease. 9. Chronic pain syndrome. 10. Generalized anxiety disorder. 11. Peripheral neuropathy. 12. Severe protein calorie malnutrition secondary to cancer. 13. Anemia most likely secondary to cancer. 14. Acute delirium most likely secondary to combination of medications and cancer. Discharge plan: Home with [facility]. Impression and plan of care have been directed as dictated by the signing physician. Lizy Sin nurse practitioner acting as scribe for signing physician. Patient Condition at Discharge: Stable Plan - Discharge Summary Discharge Rx Participant: No New Discharge Prescriptions: New LORazepam ORAL CONC [Ativan Intensol] 2 mg PO Q4HR PRN #30 ml PRN Reason: Anxiety Atropine Ophth Soln 1% 5Ml [Isopto Atropine 1% 5Ml] 2 drops PO Q4HR PRN #1 bottle PRN Reason: Secretions MORPHINE ORAL ALEXANDER CONC 20mg/mL [Roxanol Oral Soln Conc 20MG/ML] 5 mg PO Q4H PRN #30 ml PRN Reason: Pain fentaNYL 25MCG/HR PATCH [Duragesic 25MCG/HR] 25 mcg TRANSDERM Q72H 3 Days #1 patch Polyethylene Glycol 3350 [Miralax] 17 gm PO DAILY #30 powd.pack Sennosides-Docusate Sodium [Senokot-S] 2 each PO HS tab Continue Famotidine [Pepcid] 20 mg PO HS Prochlorperazine [Compazine] 10 mg PO Q6H PRN PRN Reason: Nausea Ondansetron [Zofran] 8 mg PO Q8HR PRN PRN Reason: Nausea Gabapentin [Neurontin] 300 mg PO BID@0800,1200 LORazepam [Ativan] 0.5 mg PO TID PRN PRN Reason: Anxiety Amitriptyline HCl [Elavil] 25 mg PO HS HYDROcodone/APAP 5-325MG [Elgin 5-325] 1 tab PO Q8H PRN PRN Reason: Pain Rivaroxaban [Xarelto] 20 mg PO DAILY Gabapentin [Neurontin] 600 mg PO HS Discontinued Ferrous Sulfate [Iron] 325 mg PO DAILY traMADol HCL [Ultram] 50 mg PO Q6HR PRN PRN Reason: Pain Doxycycline [Vibramycin] 100 mg PO Q12H Discharge Medication List Famotidine [Pepcid] 20 mg PO HS 08/05/18 [History] Ondansetron [Zofran] 8 mg PO Q8HR PRN 08/05/18 [History] Prochlorperazine [Compazine] 10 mg PO Q6H PRN 08/05/18 [History] Gabapentin [Neurontin] 300 mg PO BID@0800,1200 09/16/18 [History] LORazepam [Ativan] 0.5 mg PO TID PRN 12/09/18 [History] Amitriptyline HCl [Elavil] 25 mg PO HS 01/20/19 [History] HYDROcodone/APAP 5-325MG [Elgin 5-325] 1 tab PO Q8H PRN 01/20/19 [History] Gabapentin [Neurontin] 600 mg PO HS 02/04/19 [History] Rivaroxaban [Xarelto] 20 mg PO DAILY 02/04/19 [History] Atropine Ophth Soln 1% 5Ml [Isopto Atropine 1% 5Ml] 2 drops PO Q4HR PRN #1 bottle 03/18/19 [Rx] LORazepam ORAL CONC [Ativan Intensol] 2 mg PO Q4HR PRN #30 ml 03/18/19 [Rx] MORPHINE ORAL ALEXANDER CONC 20mg/mL [Roxanol Oral Soln Conc 20MG/ML] 5 mg PO Q4H PRN #30 ml 03/18/19 [Rx] Polyethylene Glycol 3350 [Miralax] 17 gm PO DAILY #30 powd.pack 03/18/19 [Rx] Sennosides-Docusate Sodium [Senokot-S] 2 each PO HS tab 03/18/19 [Rx] fentaNYL 25MCG/HR PATCH [Duragesic 25MCG/HR] 25 mcg TRANSDERM Q72H 3 Days #1 patch 03/18/19 [Rx] Follow up Appointment(s)/Referral(s): Yael Goldberg MD [Primary Care Provider] - As Needed Discharge Disposition: HOME WITH HOSPICE
[2019-03-18] MEDS ORDERED: SODIUM FERRIC GLUCONAT-SUCROSE 125 MG in SODIUM CHLORIDE 0.9% 100 ML IVPB SCH (11:30)
[2019-03-18 12:47] VITALS: BP 118/68; PULSE 120
[2019-03-18] MEDS ORDERED: NYSTATIN 100,000 UNIT/ML SUSP 500,000 UNIT/5 ML CUP PO SCH (13:00)
--- NOTE | 2019-03-18 18:19 | P.PN ---
Subjective Progress Note Date: 03/18/19 Principal diagnosis: dehydration, pain from malignancy, urinary tract infection Patient seen today after a greater than 3 L paracentesis. She states feeling significantly better, abdomen less distended. Pain is controlled with morphine, nausea is manageable, she is looking forward to comfort only Objective - Vital Signs Vital signs: Vital Signs Temp 97.9 F 03/18/19 04:50 Pulse 120 H 03/18/19 12:45 Resp 16 03/18/19 12:45 BP 118/68 03/18/19 12:45 Pulse Ox 97 03/18/19 12:45 Intake & Output 03/17/19 03/18/19 03/18/19 18:59 06:59 18:59 Intake Total 240 Output Total 3600 Balance 240 -3600 Weight 65.317 kg Intake: Oral 240 Output: Gastric Drainage 3600 Other: Voiding Method Toilet Toilet Toilet # Voids 1 1 - Exam Well-developed thin, frail, distended abdomen persists but, much softer after paracentesis, tumors are palpable, no acute distress, alert and oriented 4, skin is warm and dry, noted scarring from EGFR treatments, pain with palpation of the lower abdomen and the back, mild lower extremity swelling, no gross focal or motor or neural deficits, patient is appropriate in mood and affect. - Labs CBC & Chem 7: 03/18/19 10:15 03/15/19 06:55 Labs: Abnormal Lab Results - Last 24 Hours (Table) 03/18/19 03/18/19 Range/Units 10:15 10:15 WBC 11.9 H (3.8-10.6) k/uL RBC 3.50 L (3.80-5.40) m/uL Hgb 7.6 L (11.4-16.0) gm/dL Hct 27.1 L (34.0-46.0) % MCV 77.3 L (80.0-100.0) fL MCH 21.6 L (25.0-35.0) pg MCHC 27.9 L (31.0-37.0) g/dL RDW 19.2 H (11.5-15.5) % Plt Count 577 H (150-450) k/uL PT 12.9 H (9.0-12.0) sec INR 1.3 H (<1.2) Microbiology - Last 24 Hours (Table) 03/14/19 17:30 Gram Stain - Final Ascites Fluid Body Fluid Culture - Final 03/12/19 14:44 Blood Culture - Final Blood No Growth after 144 hours Assessment and Plan (1) Anorexia Status: Acute Priority: High Code(s): R63.0 - ANOREXIA SNOMED Code(s): 60006565 (2) Colon cancer Status: Chronic Priority: High Code(s): C18.9 - MALIGNANT NEOPLASM OF COLON, UNSPECIFIED SNOMED Code(s): 928882743 (3) Dehydration Status: Acute Priority: High Code(s): E86.0 - DEHYDRATION SNOMED Code(s): 40690932 (4) UTI (urinary tract infection) Status: Acute Priority: High Code(s): N39.0 - URINARY TRACT INFECTION, SITE NOT SPECIFIED SNOMED Code(s): 53006244 (5) Abdominal pain Status: Acute Priority: High Code(s): R10.9 - UNSPECIFIED ABDOMINAL PAIN SNOMED Code(s): 14187048 (6) Mucositis (ulcerative) due to antineoplastic therapy Status: Resolved Priority: High Code(s): K12.31 - ORAL MUCOSITIS (ULC ERATIVE) DUE TO ANTINEOPLASTIC THERAPY SNOMED Code(s): 966908262 Plan: Patient has opted for hospice. She is going to be transferred to hospice house today. She has the full support of all of her providers as well as her family. Patient seems very clear and sure of her decision. Discharge once all plans in place
--- NOTE | 2019-03-20 08:42 | US ---
Therapeutic paracentesis. DATE OF EXAM: 03/18/2019 CLINICAL HISTORY: Malignant ascites The procedure was discussed with the patient. The risks, complications, benefits, and alternatives we re discussed and any questions were answered. Informed consent was obtained. The patient was placed s upine on the ultrasound table and prepped and draped in the usual sterile fashion. All elements of maximal barrier technique were utilized. Under ultrasound guidance, access into the left lower quadrant was obtained, via the paracentesis catheter system and direct ultrasound guidance . Approximately 3.6 liters of serous fluid was removed. The patient was stable throughout the procedure and remained stable upon discharge from Department of Radiology. IMPRESSION: Successful therapeutic paracentesis under ultrasound guidance.
== END 2019-03-18 15:50 | disposition hospice, inpatient (51) | DRG 374 ==
LOC: EC 10:40 → 3NMEDONC 12:55 → OBSVTOIN 03-13 08:16 → 3NMEDONC 03-14 23:29
PROVIDERS: ADMIT Internal Medicine; ATTEND Internal Medicine
PROC: 0W9G3ZZ Drainage of Peritoneal Cavity, Percutaneous Approach (ICD-10-PCS; principal; 2019-03-14)
PROC: 0W9G3ZZ Drainage of Peritoneal Cavity, Percutaneous Approach (ICD-10-PCS; 2019-03-18)
DX: C18.0 Malignant neoplasm of cecum (principal); E43 Unspecified severe protein-calorie malnutrition; C79.89 Secondary malignant neoplasm of other specified sites; R18.0 Malignant ascites; E86.0 Dehydration; F41.1 Generalized anxiety disorder; G62.9 Polyneuropathy, unspecified; G89.3 Neoplasm related pain (acute) (chronic); L27.0 Generalized skin eruption due to drugs and medicaments taken internally; I95.9 Hypotension, unspecified; T45.1X5A Adverse effect of antineoplastic and immunosuppressive drugs, initial encounter; K12.31 Oral mucositis (ulcerative) due to antineoplastic therapy; G89.4 Chronic pain syndrome; K21.9 Gastro-esophageal reflux disease without esophagitis; D63.0 Anemia in neoplastic disease; K59.00 Constipation, unspecified; Z51.5 Encounter for palliative care; Z79.01 Long term (current) use of anticoagulants; Z79.899 Other long term (current) drug therapy; Z90.49 Acquired absence of other specified parts of digestive tract; Z88.8 Allergy status to other drugs, medicaments and biological substances; Z86.718 Personal history of other venous thrombosis and embolism; Z86.010 Personal history of colon polyps; Z80.0 Family history of malignant neoplasm of digestive organs; Z86.711 Personal history of pulmonary embolism; Z87.891 Personal history of nicotine dependence; Z83.3 Family history of diabetes mellitus; Z82.49 Family history of ischemic heart disease and other diseases of the circulatory system; Z82.3 Family history of stroke; Z80.7 Family history of other malignant neoplasms of lymphoid, hematopoietic and related tissues; Z80.6 Family history of leukemia; Z80.52 Family history of malignant neoplasm of bladder
CPT/HCPCS: 36415; 49083; 71046; 74018; 76705; 80048; 80053; 81001; 82607; 82728; 82747; 83540; 83550; 83605; 83615; 83735; 83921; 84100; 84157; 84443; 85025; 85027; 85045; 85610; 85730; 87040; 87070; 87075; 87086; 87205; 88108; 88305; 88341; 88342; 89050; 93005; 93306; 96361; 96374; 99291